=== PATIENT | female | born 1940 | race Caucasian/White ===

== ENCOUNTER 2018-02-03 09:11 | Observation (INO) | payer MEDICARE ==
[2018-02-03] MEDS ORDERED: SODIUM CHLORIDE 0.9% 1,000 ML IV STA (09:51)
--- NOTE | 2018-02-03 09:54 | ED ---
General Adult HPI - General Chief complaint: Fall Stated complaint: weak Time Seen by Provider: 02/03/18 09:20 Source: patient, RN notes reviewed Mode of arrival: EMS Limitations: no limitations - History of Present Illness Initial comments: Patient is a pleasant 77-year-old female presenting to the emergency department with weakness. Onset of symptoms was this morning. Patient woke up a little bit later than normal. Patient got up she was weak and fell down. No significant injury. Last tetanus immunization 8 years ago. Patient does not believe she lost consciousness. No headache. No neck or back pain. No isolated area of weakness. No history of similar symptoms previously. - Related Data Allergies Allergy/AdvReac Type Severity Reaction Status Date / Time No Known Allergies Allergy Verified 02/03/18 09:54 Review of Systems ROS Statement: Those systems with pertinent positive or pertinent negative responses have been documented in the HPI. ROS Other: All systems not noted in ROS Statement are negative. Constitutional: Denies: fever Eyes: Denies: eye pain ENT: Denies: ear pain Respiratory: Denies: cough Cardiovascular: Denies: chest pain Endocrine: Denies: fatigue Gastrointestinal: Denies: abdominal pain Genitourinary: Denies: dysuria Musculoskeletal: Denies: back pain Skin: Denies: rash Neurological: Reports: weakness. Denies: headache, numbness, paresthesias, confusion Past Medical History Past Medical History: Diabetes Mellitus, Hypertension History of Any Multi-Drug Resistant Organisms: None Reported Past Surgical History: Orthopedic Surgery Additional Past Surgical History / Comment(s): knees Past Psychological History: No Psychological Hx Reported Smoking Status: Never smoker Past Alcohol Use History: None Reported General Exam Limitations: no limitations General appearance: alert, in no apparent distress Head exam: Present: atraumatic Eye exam: Present: normal appearance, PERRL, EOMI, nystagmus ENT exam: Present: mucous membranes dry Neck exam: Present: normal inspection. Absent: tenderness Respiratory exam: Present: normal lung sounds bilaterally Cardiovascular Exam: Present: regular rate, normal rhythm GI/Abdominal exam: Present: soft. Absent: tenderness Extremities exam: Present: normal inspection Back exam: Present: normal inspection Neurological exam: Present: alert, oriented X3, CN II-XII intact. Absent: motor sensory deficit Expanded Neurological exam: Present: protecting the airway Patient oriented to: Present: person, place, time Speech: Present: fluid speech Cranial nerves: EOM's Intact: Normal Cerebellar function: Finger to Nose: Normal Sensory exam: Upper Extremity Light Touch: Normal, Lower Extremity Light Touch: Normal Motor strength exam: RUE: 5, LUE: 5, RLE: 5, LLE: 5 Eye Response: (4) open spontaneously Motor Response: (6) obeys commands Verbal Response: (5) oriented Psychiatric exam: Present: normal affect, normal mood Skin exam: Present: normal color, abrasion (Left elbow) Course Vital Signs 02/03/18 09:21 Temperature 97.6 F Pulse Rate 61 Respiratory 18 Rate Blood Pressure 168/70 O2 Sat by Pulse 99 Oximetry - Reevaluation(s) Reevaluation #1: 02/03/18 12:31 Patient does not meet sepsis criteria EKG Findings - EKG Comments: EKG Findings:: Sinus bradycardia 55. WI 152. QRS 100. QT 456. QTc 436. Left axis. Normal QRS. No acute ST change. Medical Decision Making - Medical Decision Making Patient reevaluated and resting comfortably in bed. Patient updated on results and plan. Xanax will be obtained. Case was discussed in detail with Dr. martinez, who will admit for Dr. lopez. - Lab Data Result diagrams: 02/03/18 09:29 02/03/18 09:29 Lab Results 02/03/18 02/03/18 02/03/18 Range/Units 09:29 09:29 09:29 WBC 5.6 (3.8-10.6) k/uL RBC 3.64 L (3.80-5.40) m/uL Hgb 9.4 L (11.4-16.0) gm/dL Hct 30.2 L (34.0-46.0) % MCV 83.0 (80.0-100.0) fL MCH 25.9 (25.0-35.0) pg MCHC 31.2 (31.0-37.0) g/dL RDW 15.8 H (11.5-15.5) % Plt Count 264 (150-450) k/uL Neutrophils % 44 % Lymphocytes % 42 % Monocytes % 8 % Eosinophils % 3 % Basophils % 1 % Neutrophils # 2.5 (1.3-7.7) k/uL Lymphocytes # 2.3 (1.0-4.8) k/uL Monocytes # 0.5 (0-1.0) k/uL Eosinophils # 0.2 (0-0.7) k/uL Basophils # 0.0 (0-0.2) k/uL Hypochromasia Moderate PT (9.0-12.0) sec INR (<1.2) APTT (22.0-30.0) sec Sodium 138 (137-145) mmol/L Potassium 3.3 L (3.5-5.1) mmol/L Chloride 99 (98-107) mmol/L Carbon Dioxide 29 (22-30) mmol/L Anion Gap 10 mmol/L BUN 40 H (7-17) mg/dL Creatinine 1.02 (0.52-1.04) mg/dL Est GFR (CKD-EPI)AfAm 61 (>60 ml/min/1.73 sqM) Est GFR (CKD-EPI)NonAf 53 (>60 ml/min/1.73 sqM) Glucose 101 H (74-99) mg/dL Calcium 9.5 (8.4-10.2) mg/dL Magnesium 2.3 (1.6-2.3) mg/dL Total Bilirubin 0.2 (0.2-1.3) mg/dL AST 23 (14-36) U/L ALT 26 (9-52) U/L Alkaline Phosphatase 109 (38-126) U/L Total Creatine Kinase 98 (30-135) U/L CK-MB (CK-2) 1.4 (0.0-2.4) ng/mL CK-MB (CK-2) Rel Index 1.4 Troponin I <0.012 (0.000-0.034) ng/mL Total Protein 6.7 (6.3-8.2) g/dL Albumin 3.6 (3.5-5.0) g/dL Urine Color Urine Appearance (Clear) Urine pH (5.0-8.0) Ur Specific [place] (1.001-1.035) Urine Protein (Negative) Urine Glucose (UA) (Negative) Urine Ketones (Negative) Urine Blood (Negative) Urine Nitrite (Negative) Urine Bilirubin (Negative) Urine Urobilinogen (<2.0) mg/dL Ur Leukocyte Esterase (Negative) Urine RBC (0-5) /hpf Urine WBC (0-5) /hpf Urine Bacteria (None) /hpf Hyaline Casts (0-2) /lpf 02/03/18 02/03/18 Range/Units 09:29 11:30 WBC (3.8-10.6) k/uL RBC (3.80-5.40) m/uL Hgb (11.4-16.0) gm/dL Hct (34.0-46.0) % MCV (80.0-100.0) fL MCH (25.0-35.0) pg MCHC (31.0-37.0) g/dL RDW (11.5-15.5) % Plt Count (150-450) k/uL Neutrophils % % Lymphocytes % % Monocytes % % Eosinophils % % Basophils % % Neutrophils # (1.3-7.7) k/uL Lymphocytes # (1.0-4.8) k/uL Monocytes # (0-1.0) k/uL Eosinophils # (0-0.7) k/uL Basophils # (0-0.2) k/uL Hypochromasia PT 9.6 (9.0-12.0) sec INR 1.0 (<1.2) APTT 20.7 L (22.0-30.0) sec Sodium (137-145) mmol/L Potassium (3.5-5.1) mmol/L Chloride (98-107) mmol/L Carbon Dioxide (22-30) mmol/L Anion Gap mmol/L BUN (7-17) mg/dL Creatinine (0.52-1.04) mg/dL Est GFR (CKD-EPI)AfAm (>60 ml/min/1.73 sqM) Est GFR (CKD-EPI)NonAf (>60 ml/min/1.73 sqM) Glucose (74-99) mg/dL Calcium (8.4-10.2) mg/dL Magnesium (1.6-2.3) mg/dL Total Bilirubin (0.2-1.3) mg/dL AST (14-36) U/L ALT (9-52) U/L Alkaline Phosphatase (38-126) U/L Total Creatine Kinase (30-135) U/L CK-MB (CK-2) (0.0-2.4) ng/mL CK-MB (CK-2) Rel Index Troponin I (0.000-0.034) ng/mL Total Protein (6.3-8.2) g/dL Albumin (3.5-5.0) g/dL Urine Color Light Yellow Urine Appearance Clear (Clear) Urine pH 6.5 (5.0-8.0) Ur Specific [place] 1.012 (1.001-1.035) Urine Protein Negative (Negative) Urine Glucose (UA) Negative (Negative) Urine Ketones Negative (Negative) Urine Blood Negative (Negative) Urine Nitrite Positive H (Negative) Urine Bilirubin Negative (Negative) Urine Urobilinogen <2.0 (<2.0) mg/dL Ur Leukocyte Esterase Small H (Negative) Urine RBC <1 (0-5) /hpf Urine WBC 14 H (0-5) /hpf Urine Bacteria Moderate H (None) /hpf Hyaline Casts 4 H (0-2) /lpf - Radiology Data Radiology results: report reviewed (Computed tomography scan of the brain shows atrophy. No acute intercranial abnormality.), image reviewed (Chest x-ray shows no definite acute process.) Disposition Clinical Impression: Dehydration, UTI (urinary tract infection) Disposition: ADMITTED IP TO THIS HOSP Condition: Stable Referrals: James Groves MD [Primary Care Provider] - 1-2 days Decision Time: 12:32
[2018-02-03 10:09] LABS: Basophils % (A) 1 %; Eosinophils # (A) 0.2 k/uL (0-0.7); Eosinophils % (A) 3 %; HCT 30.2 % (34.0-46.0); HGB 9.4 gm/dL (11.4-16.0); Hypochromasia Moderate; Lymphocytes # (A) 2.3 k/uL (1.0-4.8); Lymphocytes % (A) 42 %; MCH 25.9 pg (25.0-35.0); MCHC 31.2 g/dL (31.0-37.0); Mean Platelet Volume 8.2; Monocytes # (A) 0.5 k/uL (0-1.0); Monocytes % (A) 8 %; Neutrophils # (A) 2.5 k/uL (1.3-7.7); Neutrophils % (A) 44 %; Platelet Count 264 k/uL (150-450); RBC 3.64 m/uL (3.80-5.40); RDW 15.8 % (11.5-15.5); WBC 5.6 k/uL (3.8-10.6)
[2018-02-03 10:22] LABS: Albumin 3.6 g/dL (3.5-5.0); Calcium 9.5 mg/dL (8.4-10.2); Magnesium 2.3 mg/dL (1.6-2.3); Potassium 3.3 mmol/L (3.5-5.1); Total Bilirubin 0.2 mg/dL (0.2-1.3); Total Protein 6.7 g/dL (6.3-8.2)
[2018-02-03 10:24] LABS: Prothrombin Time 9.6 sec (9.0-12.0)
[2018-02-03 10:29] LABS: Partial Thromboplastin Time 20.7 sec (22.0-30.0)
[2018-02-03 10:35] LABS: Creatine Kinase 98 U/L (30-135)
--- NOTE | 2018-02-03 10:35 | CT ---
EXAMINATION TYPE: CT brain wo con DATE OF EXAM: 02/03/2018 COMPARISON: None HISTORY: 77-year-old female with weakness, Fall-confusion TECHNIQUE: Examination was done in axial plane without intravenous contrast. Coronal and sagittal r econstructions performed. CT DLP: 995.50 mGycm Automated exposure control for dose reduction was used. FINDINGS: There is no evidence of acute intracranial hemorrhage, acute ischemic changes, mass, mass-effect, or extra-axial fluid collection. There is no effacement of cerebral sulci or basal subarachnoid cister ns. There is no hydrocephalus. There is no midline shift. Wall-white matter distinction is preserv ed. Mild to moderate generalized cortical atrophy along the superior convexities. Mucosal thickening ethmoid air cells. Mastoid air cells well pneumatized. Orbits and globes are intac t. IMPRESSION: Cerebral cortical atrophy. No acute intracranial abnormality seen. Mild chronic ethmoid sinus disease .
--- NOTE | 2018-02-03 10:36 | XR ---
EXAMINATION TYPE: XR chest 2V DATE OF EXAM: 02/03/2018 COMPARISON: None HISTORY: 77-year-old female with weakness, fall, confusion TECHNIQUE: Frontal and lateral views FINDINGS: Heart upper limits of normal in size. Aorta and pulmonary vasculature within normal limits. Mild inte rstitial prominence as a chronic appearance. No consolidation or pleural effusion. Degenerative sandoval es at both shoulders. IMPRESSION: Borderline heart size and chronic appearing changes. No definite acute process.
[2018-02-03 10:48] LABS: Creatine Kinase MB 1.4 ng/mL (0.0-2.4); Troponin I <0.012 ng/mL (0.000-0.034)
[2018-02-03 11:49] LABS: Appearance,Urine Clear (Clear); Bacteria,Urine Moderate /hpf; Bilirubin,Urine Negative (Negative); Blood,Urine Negative (Negative); Color,Urine Light Yellow; Glucose,Urine (UA) Negative (Negative); Hyaline Casts,Urine 4 /lpf (0-2); Ketones,Urine Negative (Negative); Leukocyte Esterase,Urine Small (Negative); Nitrite,Urine Positive (Negative); PH, Urine 6.5 (5.0-8.0); Protein,Urine Negative (Negative); RBC,Urine <1 /hpf (0-5); Specific Gravity,Urine 1.012 (1.001-1.035); Urobilinogen,Urine <2.0 mg/dL (<2.0); WBC,Urine 14 /hpf (0-5)
[2018-02-03] MEDS ORDERED: ACETAMINOPHEN TAB 325 MG TAB PO PRN (12:32)
[2018-02-03] MEDS ORDERED: NALOXONE 0.4 MG/ML 1 ML VIAL IV PRN (12:32)
[2018-02-03] MEDS ORDERED: IBUPROFEN 800 MG TAB PO STA (13:14)
[2018-02-03] MEDS ORDERED: cefTRIAXone IN SWFI 1,000 MG/10 ML SYRINGE IVP STA (13:22)
[2018-02-03] MEDS: SODIUM CHLORIDE 0.9% 1,000 ML IV SCH ×2 (14:44→20:46)
[2018-02-03] MEDS ORDERED: IBUPROFEN 800 MG TAB PO PRN (15:05)
[2018-02-03] MEDS: HYDROcodone/APAP 7.5-325MG 1 EACH TAB PO SCH ×2 (16:13→20:45)
[2018-02-03] MEDS: GABAPENTIN 400 MG CAP PO SCH ×2 (16:14→20:45)
[2018-02-03] MEDS: LISINOPRIL 20 MG TAB PO SCH (16:14)
[2018-02-03] MEDS: FUROSEMIDE 40 MG TAB PO SCH (16:14)
[2018-02-03] MEDS: POTASSIUM CHLORIDE ER 10 MEQ TAB.ER.PRT PO SCH (16:15)
[2018-02-03] MEDS: HYDROCHLOROTHIAZIDE 25 MG TAB PO SCH (16:15)
[2018-02-03 16:37] VITALS: BMI 34.5
[2018-02-03 17:06] LABS: Glucose,Whole Blood 127 mg/dL (75-99)
[2018-02-03] MEDS: metFORMIN 500 MG TAB PO SCH (17:49)
[2018-02-03] MEDS ORDERED: BACLOFEN 10 MG TAB PO SCH (21:00)
[2018-02-03] MEDS ORDERED: risperiDONE 1 MG TAB PO SCH (21:00)
[2018-02-03] MEDS ORDERED: ZOLPIDEM 10 MG TAB PO SCH (21:00)
--- NOTE | 2018-02-03 21:32 | P.CNNES ---
History of Present Illness Consult date: 02/03/18 History of Present Illness: The patient is a 77-year-old right-handed white female who came by EMS to the emergency room at 9 AM this morning. She states she pushed her medical alert button on her wrist because she had fallen at home. The patient states that at 4:30 in the morning she woke up to take her arthritis medication which was 800 mg of Motrin and gabapentin. She states in addition to that she took her extra baclofen. She slept well up until 8:30 AM and when she got up to stand on her with the use of her walker she couldn't stand and slid to the floor. She could not get up from the floor. She pushed the alert button and EMS arrived and brought her to the emergency room. She states normally she takes only one baclofen a day and this is because in the past when she is exceeded more than one baclofen she has had shakiness and general weakness. On this particular morning she took an extra baclofen because she felt that she did a lot the previous day and she may need more pain control. The patient states also that she thought she might be having a urinary tract infection and is going to contact her primary care physician tomorrow. In the emergency room she was found to have a urinary tract infection and was admitted to the hospital with dehydration and UTI. The patient denies any neurologic complaints such as focal weakness numbness visual disturbance headache or dizziness. Review of Systems Constitutional: Reports as per HPI Eyes: denies blurred vision, denies pain Ears, nose, mouth and throat: Denies headache, Denies sore throat Cardiovascular: Denies chest pain, Denies shortness of breath Respiratory: Denies cough Genitourinary: Denies dysuria, Denies hematuria Musculoskeletal: Denies myalgias Integumentary: Denies pruritus, Denies rash Neurological: Reports as per HPI Psychiatric: Denies anxiety, Denies depression Past Medical History Past Medical History: Diabetes Mellitus, Hypertension History of Any Multi-Drug Resistant Organisms: None Reported Past Surgical History: Orthopedic Surgery Additional Past Surgical History / Comment(s): knees Past Anesthesia/Blood Transfusion Reactions: No Reported Reaction Past Psychological History: No Psychological Hx Reported Smoking Status: Never smoker Past Alcohol Use History: None Reported Past Drug Use History: None Reported - Past Family History Father Family Medical History: Diabetes Mellitus Additional Family Medical History / Comment(s): Mother History Unknown: Yes Additional Family Medical History / Comment(s): pancreatic tumor (patient does not believe it was cancerous) Medications and Allergies Home Medications Medication Instructions Recorded Confirmed Type Aspirin EC [Ecotrin Low Dose] 81 mg PO DAILY 02/03/18 02/03/18 History Baclofen [Lioresal] 20 mg PO HS 02/03/18 02/03/18 History Enalapril/Hydrochlorothiazide 1 tab PO DAILY 02/03/18 02/03/18 History [Enalapril-Hctz 10-25 mg Tablet] Furosemide [Lasix] 40 mg PO DAILY 02/03/18 02/03/18 History Gabapentin 800 mg PO QID 02/03/18 02/03/18 History HYDROcodone/APAP 7.5-325MG [[place] 1 tab PO TID 02/03/18 02/03/18 History 7.5-325] Ibuprofen [Motrin] 800 mg PO QID PRN 02/03/18 02/03/18 History Potassium Chloride ER [K-Dur 10] 10 meq PO DAILY 02/03/18 02/03/18 History Zolpidem Tartrate [Ambien] 10 mg PO HS 02/03/18 02/03/18 History metFORMIN HCL 1,000 mg PO BID 02/03/18 02/03/18 History risperiDONE [RisperDAL] 1 mg PO HS 02/03/18 02/03/18 History Allergies Allergy/AdvReac Type Severity Reaction Status Date / Time No Known Allergies Allergy Verified 02/03/18 12:53 Physical Examination - Vital Signs Vital Signs: Vital Signs Temp Pulse Pulse Resp BP BP BP 02/03/18 13:54 97.2 F L 71 18 149/83 129/82 02/03/18 13:48 97.6 F 58 L 16 177/78 02/03/18 13:28 16 177/78 02/03/18 11:46 58 L 18 168/83 02/03/18 09:21 97.6 F 61 18 168/70 BP Pulse Ox 02/03/18 13:54 162/103 99 02/03/18 13:48 97 02/03/18 13:28 97 02/03/18 11:46 100 02/03/18 09:21 99 Intake and Output 09/08/1802/03/18 02/03/18 06:59 14:59 22:59 Intake Total 500 Balance 500 Intake: Amount of Fluid Infused ( 500 ml) Other: Voiding Method Toilet # Voids 1 # Bowel Movements 1 Weight 88.541 kg 88.541 kg - Constitutional General appearance: average body habitus, cooperative - EENT EENT: PERRL, hearing intact, vision intact - Respiratory Respiratory: lungs clear - Cardiovascular Cardiovascular: regular rate, normal S1 - Integumentary Integumentary: rash - Neurologic Neurologic examination: Mental status: She was awake alert and oriented 3. Her speech is fluent. There was no a aphasia or dysarthria. Cranial nerve examination: PERRL, EOMI, VFF, V1/V2/V3 grossly intact, face symmetric, tongue midline Speech examination: intact Sensorimotor examination: intact Detailed motor examination: grossly full strength in all extremities Detailed sensory examination: intact Reflexes: 2+: tricep - Psychiatric Psychiatric: mood/affect appropriate Results - Laboratory Findings CBC and BMP: 02/03/18 09:29 02/03/18 09:29 Abnormal Lab Findings: Abnormal Labs 02/03/18 02/03/18 02/03/18 09:29 09:29 09:29 RBC 3.64 L Hgb 9.4 L Hct 30.2 L RDW 15.8 H APTT 20.7 L Potassium 3.3 L BUN 40 H Glucose 101 H POC Glucose (mg/dL) Urine Nitrite Ur Leukocyte Esterase Urine WBC Urine Bacteria Hyaline Casts 02/03/18 02/03/18 11:30 17:04 RBC Hgb Hct RDW APTT Potassium BUN Glucose POC Glucose (mg/dL) 127 H Urine Nitrite Positive H Ur Leukocyte Esterase Small H Urine WBC 14 H Urine Bacteria Moderate H Hyaline Casts 4 H Assessment and Plan (1) Weakness Current Visit: Yes Status: Acute SNOMED Code(s): 23837169 (2) Fall Current Visit: Yes Status: Acute SNOMED Code(s): 8533882 (3) Dehydration Current Visit: Yes Status: Acute SNOMED Code(s): 00694483 (4) UTI (urinary tract infection) Current Visit: Yes Status: Acute SNOMED Code(s): 24210083 Plan: The patient is a 77-year-old woman admitted to the hospital after a fall at home. The patient lost her strength. She reports taking an extra pill of baclofen which she has not tolerated in the past due to weakness. The patient normally takes 1 baclofen a day and yesterday she took an extra back baclofen at 4:30 AM. When she woke up at 8:30 AM she could not stand and fell to the floor. She states she did not lose consciousness. She was unable to get up to the floor because she has bilateral knee replacements. Patient was admitted to the hospital with UTI and dehydration. Her fall may have been related to the medication which caused her muscles to become weaker and this in combination with her urinary tract infection and dehydration could've caused the fall however further investigation will be done with carotid ultrasound. She had a CT of the brain which showed cerebral cortical atrophy. There was no acute intracranial abnormality.
[2018-02-04] MEDS: GABAPENTIN 400 MG CAP PO SCH ×2 (08:28→12:05)
[2018-02-04] MEDS: metFORMIN 500 MG TAB PO SCH (08:28)
[2018-02-04] MEDS: FUROSEMIDE 40 MG TAB PO SCH (08:28)
[2018-02-04] MEDS: HYDROcodone/APAP 7.5-325MG 1 EACH TAB PO SCH ×2 (08:28→15:46)
[2018-02-04] MEDS: HYDROCHLOROTHIAZIDE 25 MG TAB PO SCH (08:28)
[2018-02-04] MEDS: POTASSIUM CHLORIDE ER 10 MEQ TAB.ER.PRT PO SCH (08:28)
[2018-02-04] MEDS: LISINOPRIL 20 MG TAB PO SCH (08:28)
[2018-02-04] MEDS: SODIUM CHLORIDE 0.9% 1,000 ML IV SCH (08:29)
[2018-02-04 08:32] LABS: Glucose,Whole Blood 155 mg/dL (75-99)
[2018-02-04 08:51] VITALS: BP 150/82; PULSE 74; RESP 16; TEMP 98.1
[2018-02-04] MEDS ORDERED: ASPIRIN 81 MG PO SCH (09:00)
[2018-02-04] MEDS ORDERED: cefTRIAXone IN SWFI 1,000 MG/10 ML SYRINGE IVP SCH (09:00)
[2018-02-04 10:05] LABS: Anion Gap 10 mmol/L; Blood Urea Nitrogen 22 mg/dL (7-17); Calcium 9.4 mg/dL (8.4-10.2); Carbon Dioxide 29 mmol/L (22-30); Chloride 100 mmol/L (98-107); Glucose 199 mg/dL (74-99); Potassium 3.8 mmol/L (3.5-5.1); Sodium 139 mmol/L (137-145)
--- NOTE | 2018-02-04 12:00 | US ---
EXAMINATION TYPE: US carotid duplex BILAT DATE OF EXAM: 02/04/2018 COMPARISON: NONE CLINICAL HISTORY: Fall. EXAM MEASUREMENTS: RIGHT: Peak Systolic Velocity (PSV) cm/sec ----- Right CCA: 79.0 ----- Right ICA: 51.9 ----- Right ECA: 68.1 ICA/CCA ratio: 0.7 RIGHT: End Diastole cm/sec ----- Right CCA: 20.8 ----- Right ICA: 18.4 ----- Right ECA: 10.3 LEFT: Peak Systolic Velocity (PSV) cm/sec ----- Left CCA: 77.6 ----- Left ICA: 56.1 ----- Left ECA: 61.2 ICA/CCA ratio: 0.7 LEFT: End Diastole cm/sec ----- Left CCA: 19.2 ----- Left ICA: 19.4 ----- Left ECA: 7.4 VERTEBRALS (direction of flow): Right Vertebral: Antegrade Left Vertebral: Antegrade Rhythm: Normal Mild atherosclerotic changes, bilateral ICA's dive at 90 degree angle, no significant velocity elevat ions. Grayscale, color Doppler, spectral Doppler imaging performed of the carotid arteries. Waveform analys is does not show significant stenosis of the proximal internal carotid arteries. IMPRESSION: No hemodynamic significant stenosis of the proximal internal carotid arteries bilaterall y by Doppler criteria, an indirect measurement of carotid stenosis
[2018-02-04 12:59] LABS: Glucose,Whole Blood 109 mg/dL (75-99)
--- NOTE | 2018-02-04 15:30 | HP ---
HISTORY AND PHYSICAL DATE OF ADMISSION: February 03, 2018. DATE OF SERVICE: February 04, 2018 PRESENT COMPLAINT: Legs feeling like noodles. HISTORY OF PRESENTING COMPLAINT: This is a pleasant 77-year-old patient of Dr. Groves. Chronic stable medical conditions include diabetes, hypertension, osteoarthritis, insomnia. The patient normally uses a walker to get about. The day before presentation she was sitting out with family the whole day in a gazebo. Decided that night to take an extra baclofen which is a 20 mg pill. The patient normally gets up at 8 in the morning. Patient got up late in the afternoon, when she got up the patient was feeling totally a bit off. Really weak and tired. Legs felt like noodles. The patient went down to the ground. The patient never passed out. There was no dizziness, lightheadedness. No chest pain or palpitation. The patient normally notices trouble getting up the stairs and also raising her arms. The patient presented for the same. Denies any fever and chills. Bowels are stable. Some urinary frequency. REVIEW OF SYSTEMS: CONSTITUTIONAL: Weak and tired. HEENT: Decreased hearing. RESPIRATORY none. CARDIOVASCULAR none. GASTROINTESTINAL none. GENITOURINARY as above. MUSCULOSKELETAL: Arthritic pain in many joints. DERMATOLOGICAL: Chronic some bruising. HEMATOLOGICAL and LYMPHATICS none. PSYCHIATRY: Slightly forgetful. NEUROLOGICAL: Trouble sleeping. Musculoskeletal as above. PAST MEDICAL HISTORY: Diabetes, hypertension, osteoarthritis, insomnia. PAST SURGICAL HISTORY: Knee surgery. SOCIAL HISTORY: No smoking. No alcohol. Lives by herself. Uses a walker. FAMILY HISTORY: Diabetes. HOME MEDICATIONS: 1. Risperdal 1 mg q.h.s. 2. Metformin 1000 mg b.i.d. 3. Ambien 10 mg q.h.s. 4. Potassium 10 mEq a day. 5. Motrin 800 mg q.i.d. p.r.n. 6. [place] 7.5 one tab p.o. t.i.d. 7. Neurontin 800 mg p.o. t.i.d. 8. Lasix 40 mg p.o. daily. 9. Hydrochlorothiazide 10 1 tablet p.o. daily. 10.Baclofen 20 mg q.h.s. 11.Aspirin 81 mg p.o. daily. ALLERGIES: None. PHYSICAL EXAMINATION: VITAL SIGNS: Vital signs on presentation, temperature 97.6. Pulse 61. Respiratory rater 18, blood pressure 160/70, pulse ox 99 percent on 2 L. GENERAL APPEARANCE: Well built, BMI 34.2, lying in bed, somewhat tired-appearing. EYES: Pupils equal. Conjunctivae normal. HEENT: External appearance of nose and ears normal. Oral cavity dry. Decreased hearing. NECK: JVD not raised. Mass not palpable. RESPIRATORY effort normal. LUNGS fair entry. CARDIOVASCULAR: 1st and second sounds normal. Mild edema. ABDOMEN: Soft, nontender. Liver and spleen not palpable. LYMPHATICS: No lymph nodes palpable in the neck and axilla. PSYCHIATRY: Alert and oriented x3. Mood and affect is normal. NEUROLOGICAL: Pupils equal. Cranial nerves grossly intact. Power and sensation grossly intact. MUSCULOSKELETAL: Evidence of severe osteoarthritis especially in the hands. The patient has got scar sahu on the knees. DERMATOLOGICAL: Superficial bruising on the lower extremities. NEUROLOGICAL: Patient is able to lift both legs off the bed. INVESTIGATIONS: White count 5.6, hemoglobin 9.4, potassium 3.3, BUN 40, creatinine is 1.02. UA positive for nitrite, leukoesterase, 14 WBC and bacteria. ASSESSMENT: 1. This patient presented feeling really weak, tired, and fell down in her legs. This felt to be combination of possibly acute metabolic encephalopathy from patient. The patient did take an extra baclofen which is rather hefty dose of 20 mg, also combination of urinary tract infection and partially being on the dry side with the BUN being a 40. 2. Clinical dehydration. Will stop patient's Lasix. 3. Diabetes mellitus type 2 on oral hypoglycemia. 4. Essential hypertension. 5. Chronic insomnia. 6. Primary osteoarthritis severe in multiple joints. 7. 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 8. Acute urinary tract infection. PLAN: Patient is put on IV ceftriaxone. Lasix was discontinued. Patient will be given IV fluids. The patient will be now kept off . The patient was told that we will get physical therapy involved, but she is very keen to go home today and told her it may not be safe for her to do that. We will see how she fairs. Give Lovenox for DVT prophylaxis. The patient also getting IV fluids. Told patient lower extremity swelling is probably from Neurontin which is a rather hefty dose. We will cut back to 3 times a day. Copy to Dr. Groves. [id number] / IJN: [id number] /
[2018-02-04 17:12] LABS: Glucose,Whole Blood 116 mg/dL (75-99)
--- NOTE | 2018-02-06 05:50 | DS ---
DISCHARGE SUMMARY DATE OF ADMISSION: 02/03/2018 DATE OF DISCHARGE: 02/04/2018 FINAL DIAGNOSES: 1. Acute metabolic encephalopathy from an extra dose of baclofen. 2. Acute delirium probably from urinary tract infection. 3. Dehydration from patient being on Lasix. 4. Diabetes mellitus type 2 on oral hypoglycemics. 5. Essential hypertension. 6. Chronic insomnia. 7. Primary osteoarthritis in multiple joints. 8. 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 9. Acute urinary tract infection. HOSPITAL COURSE: This patient who takes quite a few medications decided to take an extra dose of baclofen. She already takes 20 mg at night and presented with weak, tired, falling down. The patient also was found to have UTI that was treated. The patient is quite on hefty dose of medications. The patient's Lasix was discontinued. The patient does get swelling of lower extremities. Hence, dose of Neurontin was cut back from 800 mg to 3 times a day. The patient also on a hefty dose of Ambien 10 mg was cut back to half to 5 mg. care was discussed with the patient in detail. DISCHARGE MEDICATIONS: 1. Aspirin 81 mg a day. 2. Baclofen 20 mg at bedtime. 3. Enalapril/hydrochlorothiazide 10/25 one tablet p.o. daily. 4. [place] 7.5 one tablet p.o. t.i.d. 5. Motrin 800 mg q.i.d. 6. Metformin 1000 mg p.o. b.i.d. 7. Risperdal 1 mg at bedtime. 8. Neurontin 800 mg p.o. t.i.d. 9. Ambien 5 mg p.o. at bedtime. Follow up with Dr. Groves on 02/07/2018. MMODL / MARNIEN: [id number] /
== END 2018-02-04 16:54 | disposition home or self-care (01) ==
LOC: EC 09:11 → 4MS4W 12:32
PROVIDERS: ADMIT Hospitalist; ATTEND Hospitalist
DX: E86.0 Dehydration (principal); N39.0 Urinary tract infection, site not specified; E11.9 Type 2 diabetes mellitus without complications; I10 Essential (primary) hypertension; M15.9 Polyosteoarthritis, unspecified; G47.09 Other insomnia; W19.XXXA Unspecified fall, initial encounter; Y92.009 Unspecified place in unspecified non-institutional (private) residence as the place of occurrence of the external cause; T42.8X1A Poisoning by antiparkinsonism drugs and other central muscle-tone depressants, accidental (unintentional), initial encounter; G92 Toxic encephalopathy; Y92.230 Patient room in hospital as the place of occurrence of the external cause; Z83.3 Family history of diabetes mellitus; Z79.82 Long term (current) use of aspirin; Z79.84 Long term (current) use of oral hypoglycemic drugs
CPT/HCPCS: 96376; 96361 ×3; 96374; 99285; 36415; 93005; 97162; 80053; 80048; 82550; 82553; 83735; 84484; 85025; 85610; 85730; 81001; 87086; 71046; 93880; 70450; G0378 ×2; J0696 ×2

== ENCOUNTER 2018-07-01 21:13 | Observation (INO) | payer MEDICARE ==
--- NOTE | 2018-07-01 21:55 | ED ---
Syncope HPI - General Chief Complaint: Syncope Stated Complaint: Syncope, Fall Time Seen by Provider: 07/01/18 21:19 Source: EMS Mode of arrival: EMS Limitations: no limitations - History of Present Illness Initial Comments: This patient is 77-year-old woman who presents to be evaluated after syncopal episode. The patient states that she had been at home tonight. She relates that she had awakened feeling funny after having had a brief dream and then went to use the bathroom. She states that she passed out and believes she hit her head. The patient then activated her life alert button. Currently the patient complains of right low back pain radiating to her leg that she states is something she chronically has. She states she was told she has sciatica. She states that she is taking Lyrica for this, but notes that she has not had her medications tonight. Complaint: collapsed -: hour(s) Prodromal Symptoms: none -: second(s) Witnessed: no Injuries Sustained Associated with Event: Head Current Symptoms: back to baseline Context: other (Related to having a bowel movement) - Related Data Home Medications Medication Instructions Recorded Confirmed Aspirin EC [Ecotrin Low Dose] 81 mg PO DAILY 02/03/18 07/01/18 Baclofen [Lioresal] 20 mg PO HS PRN 02/03/18 07/01/18 Enalapril/Hydrochlorothiazide 1 tab PO DAILY 02/03/18 07/01/18 [Enalapril-Hctz 10-25 mg Tablet] HYDROcodone/APAP 7.5-325MG [[place] 1 tab PO TID PRN 02/03/18 07/01/18 7.5-325] risperiDONE [RisperDAL] 1 mg PO HS 02/03/18 07/01/18 Furosemide [Lasix] 40 mg PO DAILY 07/01/18 07/01/18 Potassium Chloride ER [K-Dur 10] 10 meq PO DAILY 07/01/18 07/01/18 Pregabalin [Lyrica] 75 mg PO TID 07/01/18 07/01/18 Previous Rx's Medication Instructions Recorded Zolpidem Tartrate [Ambien] 5 mg PO HS #0 02/04/18 Allergies Allergy/AdvReac Type Severity Reaction Status Date / Time No Known Allergies Allergy Verified 02/03/18 12:53 Review of Systems ROS Statement: Those systems with pertinent positive or pertinent negative responses have been documented in the HPI. ROS Other: All systems not noted in ROS Statement are negative. Constitutional: Denies: fever, chills, weakness Eyes: Denies: vision change Respiratory: Denies: cough, dyspnea Cardiovascular: Reports: syncope. Denies: chest pain, palpitations, orthopnea Gastrointestinal: Denies: abdominal pain, vomiting, diarrhea Genitourinary: Denies: dysuria Musculoskeletal: Reports: as per HPI, back pain (Chronic). Denies: joint swelling, arthralgia Skin: Denies: lesions Neurological: Denies: headache, weakness, numbness Psychiatric: Reports: anxiety Past Medical History Past Medical History: Heart Failure, Diabetes Mellitus, Hypertension Additional Past Medical History / Comment(s): sciatic nerve pain, insomnia, RLS , History of Any Multi-Drug Resistant Organisms: None Reported Past Surgical History: Orthopedic Surgery Additional Past Surgical History / Comment(s): knees, Past Anesthesia/Blood Transfusion Reactions: No Reported Reaction Past Psychological History: No Psychological Hx Reported Smoking Status: Never smoker Past Alcohol Use History: None Reported Past Drug Use History: None Reported - Past Family History Father Family Medical History: Diabetes Mellitus Additional Family Medical History / Comment(s): Mother History Unknown: Yes Additional Family Medical History / Comment(s): pancreatic tumor (patient does not believe it was cancerous) General Exam Limitations: no limitations General appearance: alert, anxious Head exam: Present: atraumatic, normocephalic Eye exam: Present: normal appearance, PERRL, EOMI. Absent: scleral icterus, conjunctival injection Neck exam: Present: normal inspection, other (Cervical collar) Respiratory exam: Present: normal lung sounds bilaterally. Absent: respiratory distress, wheezes, rales, rhonchi, stridor Cardiovascular Exam: Present: regular rate, normal rhythm, normal heart sounds. Absent: systolic murmur, diastolic murmur, rubs, gallop GI/Abdominal exam: Present: soft. Absent: distended, tenderness, guarding, rebound, rigid, mass Extremities exam: Present: normal inspection, normal capillary refill. Absent: pedal edema, calf tenderness Back exam: Present: normal inspection. Absent: CVA tenderness (R), CVA tenderness (L), vertebral tenderness Neurological exam: Present: alert, oriented X3. Absent: motor sensory deficit Skin exam: Present: warm, dry, intact, normal color. Absent: rash Course Vital Signs 07/01/18 07/01/18 07/01/18 21:16 21:35 22:44 Temperature 97.5 F L Pulse Rate 68 62 68 Respiratory 16 18 18 Rate Blood Pressure 141/54 133/80 123/75 O2 Sat by Pulse 100 97 100 Oximetry 07/01/18 07/02/18 07/02/18 23:51 05:00 06:10 Temperature 97.6 F Pulse Rate 63 69 67 Respiratory 18 20 20 Rate Blood Pressure 153/73 112/78 113/61 O2 Sat by Pulse 96 97 96 Oximetry EKG Findings - EKG Comments: EKG Findings:: Similar to comparison ECG from 02/03/2018. - EKG Results: EKG: interpreted by MICHELLE, sinus rhythm (Rate 68 bpm), normal QRS, normal ST/T, no acute changes - Blocks, [place], Hypertrophy, ST Abn: QRS axis and voltage: left axis deviation (-30 to -90) Medical Decision Making - Medical Decision Making This patient is 77-year-old woman presenting following syncopal episode. The workup does reveal elevated d-dimer but her CT for pulmonary embolus is negative. Patient be admitted for telemetry and serial cardiac enzymes. We'll also obtain duplex Doppler study. - Lab Data Result diagrams: 07/01/18 21:50 07/01/18 21:50 Lab Results 07/01/18 07/01/18 07/01/18 Range/Units 21:50 21:50 21:50 WBC 5.8 (3.8-10.6) k/uL RBC 4.15 (3.80-5.40) m/uL Hgb 9.7 L (11.4-16.0) gm/dL Hct 32.2 L (34.0-46.0) % MCV 77.6 L (80.0-100.0) fL MCH 23.5 L (25.0-35.0) pg MCHC 30.3 L (31.0-37.0) g/dL RDW 16.2 H (11.5-15.5) % Plt Count 235 (150-450) k/uL Neutrophils % 60 % Lymphocytes % 24 % Monocytes % 7 % Eosinophils % 4 % Basophils % 1 % Neutrophils # 3.5 (1.3-7.7) k/uL Lymphocytes # 1.4 (1.0-4.8) k/uL Monocytes # 0.4 (0-1.0) k/uL Eosinophils # 0.2 (0-0.7) k/uL Basophils # 0.1 (0-0.2) k/uL Hypochromasia Moderate Anisocytosis Slight Microcytosis Slight PT (9.0-12.0) sec INR (<1.2) APTT (22.0-30.0) sec D-Dimer (<0.60) mg/L FEU Sodium 137 (137-145) mmol/L Potassium 3.8 (3.5-5.1) mmol/L Chloride 101 (98-107) mmol/L Carbon Dioxide 21 L (22-30) mmol/L Anion Gap 15 mmol/L BUN 44 H (7-17) mg/dL Creatinine 1.23 H (0.52-1.04) mg/dL Est GFR (CKD-EPI)AfAm 49 (>60 ml/min/1.73 sqM) Est GFR (CKD-EPI)NonAf 42 (>60 ml/min/1.73 sqM) Glucose 171 H (74-99) mg/dL Calcium 9.3 (8.4-10.2) mg/dL Total Bilirubin 0.3 (0.2-1.3) mg/dL AST 27 (14-36) U/L ALT 25 (9-52) U/L Alkaline Phosphatase 113 (38-126) U/L Total Creatine Kinase 77 (30-135) U/L CK-MB (CK-2) 1.9 (0.0-2.4) ng/mL CK-MB (CK-2) Rel Index 2.5 Troponin I <0.012 (0.000-0.034) ng/mL Total Protein 7.3 (6.3-8.2) g/dL Albumin 4.0 (3.5-5.0) g/dL Urine Color Urine Appearance (Clear) Urine pH (5.0-8.0) Ur Specific [place] (1.001-1.035) Urine Protein (Negative) Urine Glucose (UA) (Negative) Urine Ketones (Negative) Urine Blood (Negative) Urine Nitrite (Negative) Urine Bilirubin (Negative) Urine Urobilinogen (<2.0) mg/dL Ur Leukocyte Esterase (Negative) 07/01/18 07/01/18 Range/Units 21:50 23:45 WBC (3.8-10.6) k/uL RBC (3.80-5.40) m/uL Hgb (11.4-16.0) gm/dL Hct (34.0-46.0) % MCV (80.0-100.0) fL MCH (25.0-35.0) pg MCHC (31.0-37.0) g/dL RDW (11.5-15.5) % Plt Count (150-450) k/uL Neutrophils % % Lymphocytes % % Monocytes % % Eosinophils % % Basophils % % Neutrophils # (1.3-7.7) k/uL Lymphocytes # (1.0-4.8) k/uL Monocytes # (0-1.0) k/uL Eosinophils # (0-0.7) k/uL Basophils # (0-0.2) k/uL Hypochromasia Anisocytosis Microcytosis PT 10.0 (9.0-12.0) sec INR 0.9 (<1.2) APTT 23.3 (22.0-30.0) sec D-Dimer 11.90 H (<0.60) mg/L FEU Sodium (137-145) mmol/L Potassium (3.5-5.1) mmol/L Chloride (98-107) mmol/L Carbon Dioxide (22-30) mmol/L Anion Gap mmol/L BUN (7-17) mg/dL Creatinine (0.52-1.04) mg/dL Est GFR (CKD-EPI)AfAm (>60 ml/min/1.73 sqM) Est GFR (CKD-EPI)NonAf (>60 ml/min/1.73 sqM) Glucose (74-99) mg/dL Calcium (8.4-10.2) mg/dL Total Bilirubin (0.2-1.3) mg/dL AST (14-36) U/L ALT (9-52) U/L Alkaline Phosphatase (38-126) U/L Total Creatine Kinase (30-135) U/L CK-MB (CK-2) (0.0-2.4) ng/mL CK-MB (CK-2) Rel Index Troponin I (0.000-0.034) ng/mL Total Protein (6.3-8.2) g/dL Albumin (3.5-5.0) g/dL Urine Color Light Yellow Urine Appearance Clear (Clear) Urine pH 6.0 (5.0-8.0) Ur Specific [place] 1.007 (1.001-1.035) Urine Protein Negative (Negative) Urine Glucose (UA) Negative (Negative) Urine Ketones Negative (Negative) Urine Blood Negative (Negative) Urine Nitrite Negative (Negative) Urine Bilirubin Negative (Negative) Urine Urobilinogen <2.0 (<2.0) mg/dL Ur Leukocyte Esterase Negative (Negative) Disposition Clinical Impression: Syncope, Elevated d-dimer Disposition: ADMITTED IP TO THIS HOSP Condition: Fair
[2018-07-01 22:07] LABS: Anisocytosis Slight; Basophils # (A) 0.1 k/uL (0-0.2); Basophils % (A) 1 %; Eosinophils # (A) 0.2 k/uL (0-0.7); Eosinophils % (A) 4 %; HCT 32.2 % (34.0-46.0); HGB 9.7 gm/dL (11.4-16.0); Hypochromasia Moderate; Lymphocytes # (A) 1.4 k/uL (1.0-4.8); Lymphocytes % (A) 24 %; MCH 23.5 pg (25.0-35.0); MCHC 30.3 g/dL (31.0-37.0); MCV 77.6 fL (80.0-100.0); Mean Platelet Volume 7.5; Microcytosis Slight; Monocytes # (A) 0.4 k/uL (0-1.0); Monocytes % (A) 7 %; Neutrophils # (A) 3.5 k/uL (1.3-7.7); Neutrophils % (A) 60 %; Platelet Count 235 k/uL (150-450); RBC 4.15 m/uL (3.80-5.40); RDW 16.2 % (11.5-15.5); WBC 5.8 k/uL (3.8-10.6)
[2018-07-01] MEDS ORDERED: HYDROcodone/APAP 5-325MG 1 EACH TAB PO STA (22:19)
[2018-07-01 22:21] LABS: Calcium 9.3 mg/dL (8.4-10.2); Potassium 3.8 mmol/L (3.5-5.1); Total Bilirubin 0.3 mg/dL (0.2-1.3); Total Protein 7.3 g/dL (6.3-8.2)
[2018-07-01 22:27] LABS: Creatine Kinase 77 U/L (30-135)
[2018-07-01 22:40] LABS: Creatine Kinase MB 1.9 ng/mL (0.0-2.4); Troponin I <0.012 ng/mL (0.000-0.034)
[2018-07-01 22:44] LABS: INR 0.9 (<1.2); Partial Thromboplastin Time 23.3 sec (22.0-30.0)
--- NOTE | 2018-07-01 22:53 | CT ---
EXAMINATION TYPE: CT brain micky monae DATE OF EXAM: 07/01/2018 COMPARISON: Head CT scan 02/03/2018 HISTORY: pt fall, hitting back of head neck pain. Headache. CT DLP: 1368.9 mGycm Automated exposure control for dose reduction was used. TECHNIQUE: CT scan of the head and cervical spine are performed without contrast. FINDINGS: There is cerebral cortical atrophy. There is no mass effect nor midline shift. There is n o sign of intracranial hemorrhage. Calvarium is intact. The cervical vertebra have fairly normal alignment. There is degenerative disc space narrowing throug hout the cervical spine with spurring of the endplates. Posterior elements are intact. The skull base is intact. There is no compression fracture. There is no subluxation. IMPRESSION: Cerebral atrophy. No acute intracranial abnormality. No change. Multilevel spondylotic changes in the cervical spine. No fracture.
[2018-07-01 22:55] LABS: D-Dimer 11.9 mg/L FEU (<0.60)
--- NOTE | 2018-07-01 23:39 | XR ---
EXAMINATION TYPE: XR pelvis AP view DATE OF EXAM: 07/01/2018 COMPARISON: NONE HISTORY: Pain TECHNIQUE: Single view FINDINGS: The pelvic ring is intact. Proximal femurs are intact. There is acetabular mild spurring. S acroiliac joints are intact. There is mild lumbar levoscoliosis. IMPRESSION: Nonacute abdomen.
--- NOTE | 2018-07-01 23:46 | CT ---
EXAMINATION TYPE: CT chest angio for PE DATE OF EXAM: 07/01/2018 COMPARISON: None HISTORY: syncope;elevated D-dimer CT DLP: 432.9 mGycm Automated exposure control for dose reduction was used. CONTRAST: CT Chest for pulmonary embolism performed with with IV Contrast, patient injected with 80 mL of Isovu e 370. There are 3-D post processed images. FINDINGS: The lungs are clear of consolidation. There is subsegmental atelectasis at the lung bases. There is n o pleural effusion. There are multiple calcified gallstones. There is no adrenal mass. There is moderate size hiatal hernia. There is no pericardial effusion. There is normal contrast opacification of the pulmonary arteries. There are no filling defects. There are no hilar masses. There is no mediastinal adenopathy. Thoracic aorta shows no aneurysm or dissect ion. The bony thorax is intact. There is no thoracic compression fracture. IMPRESSION: No evidence of pulmonary embolism. Cholelithiasis. Hiatal hernia.
[2018-07-01] MEDS ORDERED: SODIUM CHLORIDE 0.9% 1,000 ML IV ONE (23:49)
[2018-07-01 23:56] LABS: Appearance,Urine Clear (Clear); Bilirubin,Urine Negative (Negative); Blood,Urine Negative (Negative); Color,Urine Light Yellow; Glucose,Urine (UA) Negative (Negative); Ketones,Urine Negative (Negative); Leukocyte Esterase,Urine Negative (Negative); Nitrite,Urine Negative (Negative); Protein,Urine Negative (Negative); Specific Gravity,Urine 1.007 (1.001-1.035); Urobilinogen,Urine <2.0 mg/dL (<2.0)
[2018-07-02] MEDS ORDERED: ENOXAPARIN 80 MG/0.8 ML SYRINGE SQ STA (01:10)
[2018-07-02] MEDS ORDERED: LORazepam 2 MG/ML INJ IV STA (01:11)
[2018-07-02] MEDS ORDERED: NITROGLYCERIN SL TABS 0.4 MG TAB SUBLINGUAL PRN (05:08)
[2018-07-02 06:06] LABS: Creatine Kinase 64 U/L (30-135)
[2018-07-02 06:19] LABS: Creatine Kinase MB 2.1 ng/mL (0.0-2.4); Troponin I <0.012 ng/mL (0.000-0.034)
--- NOTE | 2018-07-02 08:10 | P.HPIM ---
History of Present Illness H&P Date: 07/02/18 Chief Complaint: Syncope 77-year-old female with history of diabetes mellitus, hypertension Patient was at her baseline status of health, she had a nap yesterday and then after waking up late in the evening she went to use the bathroom she uses a walker to ambulate. She denies any straining constipation or diarrhea she denies any bloody bowel movements or melena. Later on she went to the kitchen using her walker trying to get some water and while leaning against the countertop she fell and hit her head. She is not sure if she passed out but she thinks she might have but to her it was immediately she woke up found herself on the floor and activated the [place] alert and notified EMS and was brought to the hospital. Patient denies any palpitations chest pain shortness of breath dizziness focal neurologic deficits like weakness numbness or tingling in any of her extremities denies any chest pain fevers chills nausea or vomiting. She reports that she was completely asymptomatic before and after the fall. However she does add that she might have felt a little bit lightheaded before falling however she is not sure. She denies falling on regular basis and she reports that she had one fall within the past year where she was brought to the hospital she thinks at that time her legs gave out due to her severe arthritis. She had for full neurologic evaluation at that time and was cleared. In the emergency department her vital signs were stable, labs overall were within her baseline except for elevated creatinine and BUN suggestive of some dehydration. EKG was unremarkable. Computed tomography scan of the head was negative for any acute process At baseline patient ambulates using a walker patient lives alone in a condo patient is not on any blood thinners which she takes daily aspirin. Review of Systems Pertinent positives as noted in HPI. All other systems were reviewed and are negative Past Medical History Past Medical History: Heart Failure, Diabetes Mellitus, Hypertension Additional Past Medical History / Comment(s): sciatic nerve pain, insomnia, RLS , History of Any Multi-Drug Resistant Organisms: None Reported Past Surgical History: Orthopedic Surgery Additional Past Surgical History / Comment(s): knees, Past Anesthesia/Blood Transfusion Reactions: No Reported Reaction Past Psychological History: No Psychological Hx Reported Smoking Status: Never smoker Past Alcohol Use History: None Reported Past Drug Use History: None Reported - Past Family History Father Family Medical History: Diabetes Mellitus Additional Family Medical History / Comment(s): Mother History Unknown: Yes Additional Family Medical History / Comment(s): pancreatic tumor (patient does not believe it was cancerous) Medications and Allergies Home Medications Medication Instructions Recorded Confirmed Type Aspirin EC [Ecotrin Low Dose] 81 mg PO DAILY 02/03/18 07/01/18 History Baclofen [Lioresal] 20 mg PO HS PRN 02/03/18 07/01/18 History Enalapril/Hydrochlorothiazide 1 tab PO DAILY 02/03/18 07/01/18 History [Enalapril-Hctz 10-25 mg Tablet] HYDROcodone/APAP 7.5-325MG [[place] 1 tab PO TID PRN 02/03/18 07/01/18 History 7.5-325] risperiDONE [RisperDAL] 1 mg PO HS 02/03/18 07/01/18 History Zolpidem Tartrate [Ambien] 5 mg PO HS #0 02/04/18 07/01/18 Rx Furosemide [Lasix] 40 mg PO DAILY 07/01/18 07/01/18 History Potassium Chloride ER [K-Dur 10] 10 meq PO DAILY 07/01/18 07/01/18 History Pregabalin [Lyrica] 75 mg PO TID 07/01/18 07/01/18 History Allergies Allergy/AdvReac Type Severity Reaction Status Date / Time No Known Allergies Allergy Verified 02/03/18 12:53 Physical Exam Vitals: Vital Signs Temp Pulse Resp BP Pulse Ox 07/02/18 06:10 67 20 113/61 96 07/02/18 05:00 69 20 112/78 97 07/01/18 23:51 97.6 F 63 18 153/73 96 07/01/18 22:44 68 18 123/75 100 07/01/18 21:35 62 18 133/80 97 07/01/18 21:16 97.5 F L 68 16 141/54 100 Intake and Output 07/01/18 07/01/18 07/02/18 14:59 22:59 06:59 Output Total 600 Balance -600 Output: Urine 600 Straight 600 Other: Weight 80.286 kg Constitutional: No acute distress, conversant, pleasant Eyes: Anicteric sclerae, moist conjunctiva, no lid-lag Pupils equal round reactive to light ENMT: NC/AT Oropharynx clear, no erythema, exudates Neck: Supple, FROM, no masses, or JVD No carotid bruits No thyromegaly Lungs: Clear to auscultation Clear to percussion Normal respiratory effort, no accessory muscle use Cardiovascular: Heart regular in rate and rhythm, No murmurs, gallops, or rubs No peripheral edema Abdominal: Soft Nontender, no guarding, rebound or rigidity Abdomen moving with respiration Normoactive bowel sounds No hepatomegaly, No splenomegaly No palpable mass No abdominal wall hernia noted Skin: Normal temperature, tone, texture, turgor No induration No subcutaneous nodules No rash, lesions No ulcers Extremities: No digital cyanosis No clubbing Pedal pulses intact and symmetrical Radial pulses intact and symmetrical No calf tenderness Psychiatric: Alert and oriented to person, place and time Appropriate affect fair judgment Neuro Muscles Strength 4 /5 in all 4 extremities Sensation to light touch grossly present throughout Cranial nerves II-XII grossly intact No focal sensory deficits Cerebellar exam finger nose intact bilaterally, heel stewart intact bilaterally. Plantar reflex equivocal bilateral, Reflexes could not be elicited, Lymphatics: no palpable cervical or supraclavicular , or inguinal lymph nodes Results CBC & Chem 7: 07/01/18 21:50 07/01/18 21:50 Labs: Abnormal Lab Results - Last 24 Hours (Table) 07/01/18 07/01/18 07/01/18 Range/Units 21:50 21:50 21:50 Hgb 9.7 L (11.4-16.0) gm/dL Hct 32.2 L (34.0-46.0) % MCV 77.6 L (80.0-100.0) fL MCH 23.5 L (25.0-35.0) pg MCHC 30.3 L (31.0-37.0) g/dL RDW 16.2 H (11.5-15.5) % D-Dimer 11.90 H (<0.60) mg/L FEU Carbon Dioxide 21 L (22-30) mmol/L BUN 44 H (7-17) mg/dL Creatinine 1.23 H (0.52-1.04) mg/dL Glucose 171 H (74-99) mg/dL Assessment and Plan Assessment: 77-year-old female with history of diabetes mellitus and hypertension admitted as observation with anticipated length of stay less than 48 hours patient sustained a fall at home and syncope she was found to have acute kidney injuury and dehydration admitted for monitoring and further evaluation Plan: Syncope Fall Fall precautions Computed tomography scan of the head was negative for any acute process Continue with neuro checks Cardiac telemetry Cardiology evaluation Monitor vital signs AK I, most likely secondary to prerenal ATN from dehydration Dehydration Hold diuretics Hold JOHNNIE inhibitor IV fluid hydration Monitor urine output Microcytic anemia This is chronic in nature unchanged from baseline Check iron studies Check fecal occult blood test Chronic conditions Osteoarthritis, pain control Hypertension, currently controlled Diabetes mellitus, insulin sliding scale DVT prophylaxis heparin subcu Preformed a thorough record review from recent hospitalization patient presented for a fall, had full neurologic evaluation and was cleared for discharge Surrogate decision-maker: Patient's Sr. CODE STATUS full code Discussed with: Patient, ER, RN Anticipated discharge: <[address]: Home A total of 60 minutes was spent on the care of this complex patient more than 50 % of the time was spent in counseling and care coordination.
[2018-07-02] MEDS: SODIUM CHLORIDE 0.9% 1,000 ML IV SCH ×2 (08:18→22:46)
[2018-07-02] MEDS: HEPARIN SODIUM,PORCINE 5,000 UNIT/ML 1 ML VIAL SQ SCH ×2 (08:18→20:20)
[2018-07-02] MEDS: ASPIRIN 81 MG PO SCH (08:18)
[2018-07-02] MEDS: PREGABALIN 75 MG CAP PO SCH ×3 (08:18→20:21)
[2018-07-02 08:48] VITALS: BMI 30.4
[2018-07-02] MEDS ORDERED: LISINOPRIL 10 MG TAB PO SCH (09:00)
--- NOTE | 2018-07-02 10:05 | US ---
EXAMINATION TYPE: US venous doppler duplex LE DATE OF EXAM: 07/02/2018 9:32 AM COMPARISON: NONE CLINICAL HISTORY: Elevated d-dimer. SIDE PERFORMED: Bilateral TECHNIQUE: The lower extremity deep venous system is examined utilizing real time linear array sonog dominique with graded compression, doppler sonography and color-flow sonography. VESSELS IMAGED: External Iliac Vein (EIV) Common Femoral Vein Deep Femoral Vein Greater Saphenous Vein * Femoral Vein Popliteal Vein Small Saphenous Vein * Proximal Calf Veins (* superficial vessels) There is normal flow, compressibility, vascular waveforms. Right Leg: Negative for DVT Left Leg: Negative for DVT IMPRESSION: No evident deep venous thrombosis at or above the knees, follow-up as indicated
[2018-07-02 10:21] LABS: Creatine Kinase 138 U/L (30-135)
[2018-07-02 10:33] LABS: Creatine Kinase MB 3.5 ng/mL (0.0-2.4); Troponin I <0.012 ng/mL (0.000-0.034)
[2018-07-02 11:53] LABS: Glucose,Whole Blood 123 mg/dL (75-99)
[2018-07-02] MEDS: INSULIN ASPART 100 UNIT/ML 1 ML 10 ML VIAL SQ SCH ×3 (12:00→21:21)
[2018-07-02 16:08] LABS: Iron Saturation 4.45 (12.00-45.00)
[2018-07-02 17:06] LABS: Glucose,Whole Blood 129 mg/dL (75-99)
[2018-07-02] MEDS: HYDROcodone/APAP 7.5-325MG 1 EACH TAB PO PRN (17:53)
[2018-07-02 20:44] LABS: Glucose,Whole Blood 149 mg/dL (75-99)
[2018-07-02] MEDS ORDERED: risperiDONE 1 MG TAB PO SCH (21:00)
[2018-07-03] MEDS: SODIUM CHLORIDE 0.9% 1,000 ML IV SCH (01:57)
[2018-07-03 07:02] LABS: Glucose,Whole Blood 144 mg/dL (75-99)
[2018-07-03 07:41] VITALS: PULSE 83
[2018-07-03] MEDS: INSULIN ASPART 100 UNIT/ML 1 ML 10 ML VIAL SQ SCH ×2 (08:13→13:52)
[2018-07-03] MEDS: PREGABALIN 75 MG CAP PO SCH ×2 (08:13→16:11)
[2018-07-03] MEDS: HEPARIN SODIUM,PORCINE 5,000 UNIT/ML 1 ML VIAL SQ SCH (08:13)
[2018-07-03] MEDS: ASPIRIN 81 MG PO SCH (08:13)
[2018-07-03] MEDS: HYDROcodone/APAP 7.5-325MG 1 EACH TAB PO PRN ×2 (08:48→17:17)
[2018-07-03] MEDS ORDERED: ASPIRIN 325 MG TAB PO SCH (09:00)
[2018-07-03 11:19] LABS: Glucose,Whole Blood 141 mg/dL (75-99)
--- NOTE | 2018-07-03 11:23 | ECHOF ---
Referral Reason:Syncope MEASUREMENTS -------- HEIGHT: 165.1 cm WEIGHT: 80.3 kg BP: IVSd: 1.1 cm (0.6 - 1.1) LVIDd: 3.8 cm (3.9 - 5.3) LVPWd: 1.1 cm (0.6 - 1.1) IVSs: 1.4 cm LVIDs: 2.9 cm LVPWs: 1.4 cm LA Diam: 3.2 cm (2.7 - 3.8) RVIDd: 2.5 cm (< 3.3) Ao Diam: 3.1 cm (2.0 - 3.7) LA Diam: 3.5 cm (2.7 - 3.8) AV Cusp: 2.0 cm (1.5 - 2.6) EPSS: 0.7 cm MV E Aman: 0.76 m/s MV DecT: 340 ms MV A Aman: 1.37 m/s MV E/A Ratio: 0.55 RAP: 5.00 mmHg RVSP: 11.68 mmHg MV EF SLOPE: 64.00 mm/s (70 - 150) MV EXCURSION: 17.70 mm (> 18.000) FINDINGS -------- Sinus rhythm. This was a technically adequate study. LV size, wall thickness and systolic function are normal, with an EF greater than 55%. The left yoselyn tricular size is normal. The right ventricle is normal in size. The left atrial size is normal. The right atrial size is normal. There is mild aortic valve sclerosis. There is no evidence of aortic regurgitation. The mitral valve leaflets are mildly thickened. Mild mitral annular calcification present. Mild m itral regurgitation is present. Mild tricuspid regurgitation present. There is no evidence of pulmonary hypertension. The right v entricular systolic pressure, as measured by Doppler, is 11.68mmHg. The pulmonic valve was not well visualized. The aortic root size is normal. There is no pericardial effusion. CONCLUSIONS -------- 1. LV size, wall thickness and systolic function are normal, with an EF greater than 55%. 2. The left ventricular size is normal. 3. The right ventricle is normal in size. 4. The left atrial size is normal. 5. The right atrial size is normal. 6. There is mild aortic valve sclerosis. 7. The mitral valve leaflets are mildly thickened. 8. Mild mitral annular calcification present. 9. Mild mitral regurgitation is present. 10. Mild tricuspid regurgitation present. 11. There is no evidence of pulmonary hypertension. 12. The right ventricular systolic pressure, as measured by Doppler, is 11.68mmHg. 13. The pulmonic valve was not well visualized. 14. The aortic root size is normal. 15. There is no pericardial effusion. BLADE SHARPENER: Nasima Banuelos RDCS
[2018-07-03 13:05] LABS: Anion Gap 5 mmol/L; Blood Urea Nitrogen 17 mg/dL (7-17); Calcium 8.8 mg/dL (8.4-10.2); Carbon Dioxide 23 mmol/L (22-30); Chloride 110 mmol/L (98-107); Glucose 122 mg/dL (74-99); Potassium 3.4 mmol/L (3.5-5.1); Sodium 138 mmol/L (137-145)
[2018-07-03 13:24] VITALS: BP 135/70; RESP 18; TEMP 97.8
--- NOTE | 2018-07-03 13:42 | XR ---
EXAMINATION TYPE: XR knee complete bilateral DATE OF EXAM: 07/03/2018 COMPARISON: NONE HISTORY: Pain TECHNIQUE: 3 views of each knee are submitted for a total of 6 views FINDINGS: There is diffuse osteopenia with vascular calcifications and postsurgical changes bilaterally. Soft t issue ossification or calcifications are seen. IMPRESSION: No acute fracture or dislocation.
--- NOTE | 2018-07-03 14:32 | P.DS ---
Providers Date of admission: 07/02/18 05:09 Expected date of discharge: 07/03/18 Attending physician: Anibal Uribe MD Primary care physician: James Camejo [facility] Course: 77-year-old female with history of diabetes mellitus, hypertension Patient was at her baseline status of health, she had a nap yesterday and then after waking up late in the evening she went to use the bathroom she uses a walker to ambulate. She denies any straining constipation or diarrhea she denies any bloody bowel movements or melena. Later on she went to the kitchen using her walker trying to get some water and while leaning against the countertop she fell and hit her head. She is not sure if she passed out but she thinks she might have but to her it was immediately she woke up found herself on the floor and activated the bracelet alert and notified EMS and was brought to the hospital. Patient denies any palpitations chest pain shortness of breath dizziness focal neurologic deficits like weakness numbness or tingling in any of her extremities denies any chest pain fevers chills nausea or vomiting. She reports that she was completely asymptomatic before and after the fall. He was unsure whether the patient had a syncopal episode or not. CT of the head and cervical spine was negative for any acute process. Pelvis x-ray was negative as well. Echocardiogram was done which showed an EF greater than 55% with normal wall motion. Telemetry was within normal limits throughout her admission. Troponin was less than 0.0122, ruling out acute coronary syndrome. Orthostats were negative as well. In discussion with the patient, this incident seemed to be rather a trip and fall from tremors rather than loss of consciousness. Cardiology was consulted and this was discontinued. Patient also had a extremely high d-dimer and there was some concern for PE. CTA of the chest excluded PE and duplex of the bilateral lower extremities were negative as well. Patient was evaluated by physical therapy and recommendation was made for inpatient rehab. Patient was seen and examined prior to discharge. No acute events overnight. Patient reports intermittent tremors in all 4 extremities, can occur at anytime. Not related to intention. Patient reports that she had a tremor of her lower extremity that might have caused her to fall rather than pass out. Patient also reports that she took 2 baclofen yesterday rather than 1 which could have led to her fall. She denies any cough, shortness of breath, chest pain or palpitations. She has not had any dizziness since admission. General: [non toxic], [no distress], [appears at stated age] Derm: [warm], [dry] Head: [atraumatic], [normocephalic], [symmetric] Eyes: [EOMI], [no lid lag], [anicteric sclera] Mouth: [no lip lesion], [mucus membranes moist] Cardiovascular: [S1S2 reg], [no murmur], [positive DP pulse bilateral] Lungs: [CTA bilateral], [no rhonchi, no rales] , [no accessory muscle use] Abdominal: [soft], [ nontender to palpation], [no guarding], [no appreciable organomegaly] Ext: [no gross muscle atrophy], [no edema], [no contractures] Neuro: [no focal neuro deficits] Psych: [Alert], [oriented], [appropriate affect] Assessment and Plan 1. Mechanical fall, possible syncopal episode 2. Acute kidney injury 3. Tremors 4. Osteoarthritis 5. Hypertension 6. Diabetes mellitus CT brain and C-spine has been negative. X-rays of the pelvis has been negative. I obtained x-rays of bilateral knees which is also been negative. Pain management with [place] as needed. Fall precautions. PT has evaluated the patient and recommended inpatient rehab for which she has been accepted. Initial creatinine of 1.23. 0.61 on repeat today. Likely prerenal azotemia. Continue normal saline at 120 mL/h. The etiology of her tremors are unknown. She has seen Dr. Murphy in the outpatient setting. We will recommend that she follow-up with neurology in the outpatient setting for further workup and treatment. Pain management as above. BP is 135/70. Monitor vitals, adjust medications as necessary. [id number] glucose is 141. Insulin sliding-scale. Hypoglycemic precautions. Regular Accu-Cheks. Patient was advised follow-up with her primary care provider within 1-2 days of discharge. Pertinent Studies: Chest CTA Head and neck CT Pelvic x-ray Echocardiogram Venous Doppler Patient Condition at Discharge: Stable Plan - Discharge Summary Discharge Rx Participant: No New Discharge Prescriptions: Continue risperiDONE [RisperDAL] 1 mg PO HS Baclofen [Lioresal] 20 mg PO HS PRN PRN Reason: Muscle Pain Aspirin EC [Ecotrin Low Dose] 81 mg PO DAILY HYDROcodone/APAP 7.5-325MG [[place] 7.5-325] 1 tab PO TID PRN PRN Reason: Pain Enalapril/Hydrochlorothiazide [Enalapril-Hctz 10-25 mg Tablet] 1 tab PO DAILY Zolpidem Tartrate [Ambien] 5 mg PO HS #0 Pregabalin [Lyrica] 75 mg PO TID Potassium Chloride ER [K-Dur 10] 10 meq PO DAILY Furosemide [Lasix] 40 mg PO DAILY Discharge Medication List Aspirin EC [Ecotrin Low Dose] 81 mg PO DAILY 02/03/18 [History] Baclofen [Lioresal] 20 mg PO HS PRN 02/03/18 [History] Enalapril/Hydrochlorothiazide [Enalapril-Hctz 10-25 mg Tablet] 1 tab PO DAILY [History] HYDROcodone/APAP 7.5-325MG [[place] 7.5-325] 1 tab PO TID PRN 02/03/18 [History] risperiDONE [RisperDAL] 1 mg PO HS 02/03/18 [History] Zolpidem Tartrate [Ambien] 5 mg PO HS #0 02/04/18 [Rx] Furosemide [Lasix] 40 mg PO DAILY 07/01/18 [History] Potassium Chloride ER [K-Dur 10] 10 meq PO DAILY 07/01/18 [History] Pregabalin [Lyrica] 75 mg PO TID 07/01/18 [History] Follow up Appointment(s)/Referral(s): James Groves MD [Primary Care Provider] - 1-2 days
== END 2018-07-03 17:30 ==
LOC: EC 21:13 → 1SOBS 07-02 05:09
PROVIDERS: ADMIT Internal Medicine; ATTEND Internal Medicine
DX: R25.1 Tremor, unspecified (principal); N17.9 Acute kidney failure, unspecified; E86.0 Dehydration; R79.89 Other specified abnormal findings of blood chemistry; M54.40 Lumbago with sciatica, unspecified side; I11.0 Hypertensive heart disease with heart failure; I50.9 Heart failure, unspecified; G25.81 Restless legs syndrome; D50.9 Iron deficiency anemia, unspecified; G47.00 Insomnia, unspecified; M19.90 Unspecified osteoarthritis, unspecified site; E11.9 Type 2 diabetes mellitus without complications; Z79.82 Long term (current) use of aspirin; Z79.4 Long term (current) use of insulin; Z79.899 Other long term (current) drug therapy; Z91.81 History of falling; Z83.3 Family history of diabetes mellitus; Z80.0 Family history of malignant neoplasm of digestive organs; Z91.14 Patient's other noncompliance with medication regimen; W01.0XXA Fall on same level from slipping, tripping and stumbling without subsequent striking against object, initial encounter; Y92.090 Kitchen in other non-institutional residence as the place of occurrence of the external cause
CPT/HCPCS: 96361 ×2; 96372 ×3; 96374; 99285; 36415 ×2; 93005; 93306; 97116; 97162; 97166; 85379; 80061; 80053; 80048; 84443; 82607; 82728; 82550 ×2; 82553 ×2; 83540; 83550; 84484 ×2; 85025; 85610; 85730; 81003; 86780; 73562; 72170; 93970; 72125; 70450; 71275; G0378 ×2; J2060; J1644 ×2; J1650

== ENCOUNTER → 2019-12-14 | Day surgery (SDC) | payer MEDICARE ==
[2019-12-11 10:00] VITALS: BMI 30.4
[~2019-12-14] MED LIST: ACETAMINOPHEN TAB 500 MG TAB ONE; ACETAMINOPHEN TAB 500 MG TAB PO ONE; BUPIVACAIN-EPI 0.25%-1:200,000 30 ML VIAL SQ ONE; DEXAMETHASONE SOD PHOSPHATE 10 MG/ML 1 ML VIAL IV ONE; HEPARIN SODIUM,PORCINE 5,000 UNIT/ML 1 ML VIAL ONE; HEPARIN SODIUM,PORCINE 5,000 UNIT/ML 1 ML VIAL SQ ONE; HYDROmorphone 0.5 MG/0.5 ML SYRINGE IVP PRN; LACTATED RINGERS 1,000 ML IV SCH; LIDOCAINE 1% (10MG/ML) FOR IV START INTRADERMA PRN; MIDAZOLAM 2 MG/2 ML VIAL IV PRN; MIDAZOLAM 2 MG/2 ML VIAL ONE; PROPOFOL 10 MG/ML 20 ML VIAL IV ONE; Pre Op ABX Message 1 EACH MISC MISCELLANE ONE; fentaNYL (PF) 50 MCG/ML 2 ML AMP ONE
[2019-12-14 07:15] VITALS: TEMP 98.1
[2019-12-14 07:29] LABS: Glucose,Whole Blood 110 mg/dL (75-99)
--- NOTE | 2019-12-14 08:41 | P.GSHP ---
History of Present Illness H&P Date: 12/14/19 Chief Complaint: Melanoma right upper arm This 79-year-old female who had recent biopsy the skin lesion of the right upper arm. The lesion is a melanoma. Patient presents today for wide local excision. Past Medical History Past Medical History: Cancer, Heart Failure, Diabetes Mellitus, Hypertension Additional Past Medical History / Comment(s): sciatic nerve pain, with rt leg weakness insomnia, RLS, melanoma rt upper arm History of Any Multi-Drug Resistant Organisms: None Reported Past Surgical History: Orthopedic Surgery Additional Past Surgical History / Comment(s): knees, achilles tendon repair Past Anesthesia/Blood Transfusion Reactions: No Reported Reaction Smoking Status: Never smoker - Past Family History Father Family Medical History: Diabetes Mellitus Additional Family Medical History / Comment(s): Mother History Unknown: Yes Additional Family Medical History / Comment(s): pancreatic tumor (patient does not believe it was cancerous) Medications and Allergies Home Medications Medication Instructions Recorded Confirmed Type Aspirin EC [Ecotrin Low Dose] 81 mg PO SUMOWEFR 02/03/18 12/14/19 History Enalapril/Hydrochlorothiazide 1 tab PO DAILY 02/03/18 12/14/19 History [Enalapril/Hydrochlorothiazide 10-25 mg Tablet] Furosemide [Lasix] 40 mg PO DAILY 07/01/18 12/14/19 History Potassium Chloride ER [K-Dur 10] 10 meq PO DAILY 07/01/18 12/14/19 History HYDROcodone/APAP 7.5-325MG [[place] 1 tab PO TID PRN #9 tab 07/03/18 12/14/19 Rx 7.5-325] Pregabalin [Lyrica] 75 mg PO TID #90 cap 07/03/18 12/14/19 Rx Zolpidem Tartrate [Ambien] 5 mg PO HS #3 tablet 07/03/18 12/14/19 Rx metFORMIN HCL 1,000 mg PO BID 12/10/19 12/14/19 History Allergies Allergy/AdvReac Type Severity Reaction Status Date / Time No Known Allergies Allergy Verified 12/10/19 09:26 Surgical - Exam Vital Signs Temp Pulse Resp BP Pulse Ox 98.1 F 66 16 145/81 96 12/14/19 07:12 12/14/19 07:12 12/14/19 07:12 12/14/19 07:12 12/14/19 07:12 - General well developed, well nourished, no distress - Eyes PERRL - ENT normal pinna - Neck no masses - Respiratory normal expansion - Cardiovascular Rhythm: regular - Abdomen Abdomen: soft, non tender - Integumentary 1 cm melanoma right upper arm with biopsy scar Results - Labs Abnormal Lab Results - Last 24 Hours (Table) 12/14/19 Range/Units 07:25 POC Glucose (mg/dL) 110 H (75-99) mg/dL Assessment and Plan Assessment: Melanoma right upper arm. We'll perform wide local excision
--- NOTE | 2019-12-14 09:44 | P.OP ---
Date of Procedure: 12/14/19 Preoperative Diagnosis: Melanoma right arm Postoperative Diagnosis: Melanoma right arm Procedure(s) Performed: Wide local excision of melanoma right arm Anesthesia: MAC Surgeon: Michael Cook Estimated Blood Loss (ml): 5 Pathology: other (Melanoma) Condition: stable Disposition: PACU Description of Procedure: Patient's placed the operative table in the supine position. She received IV sedation. Her right arm was prepped and draped usual sterile fashion. Patient a previous biopsy of the right upper arm melanoma. An elliptical skin incision was made around the melanoma site. Using electrocautery and sharp and blunt dissection the specimen was dissected free. The superior portion specimen was tagged with a 3-0 Vicryl suture. The Bovie hemostasis. The specimens of pathology. The wound was closed with 3-0 Vicryl for the deep layer and 3-0 Monocryl for the skin layer monitors applied. Patient top she will was sent to recovery in stable condition.
[2019-12-14 09:48] VITALS: BP 107/60; PULSE 61; RESP 17
--- NOTE | 2019-12-16 16:03 | CDI ---
Date: 12.16.2019 CDS/Infection Control Manager Name: Jaki Maza Phone: If any questions, call Karrie Mathews [facility] at [phone] Patient Name: Rita Olsen Admit Date: Discharge Date: 12.14.19 ATTENTION: The [facility] Coding Staff appreciate your assistance in clarifying documentation. Please respond to the clarification below the line at the bottom and electronically sign. The [facility] Coding staff will review the response and follow-up if needed. Please note: Queries are made part of the Legal Health Record. If you have any questions, please contact the [facility]. Dear Dr. Cook Please specify the diatmeter of the lesion you removed from the arm: __0.5 cm or less __0.6 to 1.0 cm __1.1 to 2.0 cm __2.1 to 3.0 cm __3.1 to 4.0 cm _x_over 4.0 cm Thank you for your kind consideration. Over 4 cm MTDD
== END | disposition home or self-care (01) ==
LOC: OR 06:56
PROVIDERS: ATTEND Surgery
DX: L57.0 Actinic keratosis (principal); L81.4 Other melanin hyperpigmentation; C43.61 Malignant melanoma of right upper limb, including shoulder; I11.0 Hypertensive heart disease with heart failure; I50.9 Heart failure, unspecified; E11.9 Type 2 diabetes mellitus without complications; M54.30 Sciatica, unspecified side; G47.00 Insomnia, unspecified; G25.81 Restless legs syndrome; K08.89 Other specified disorders of teeth and supporting structures; Z98.890 Other specified postprocedural states; Z87.39 Personal history of other diseases of the musculoskeletal system and connective tissue; Z85.820 Personal history of malignant melanoma of skin; Z79.82 Long term (current) use of aspirin; Z79.899 Other long term (current) drug therapy; Z79.84 Long term (current) use of oral hypoglycemic drugs; Z83.3 Family history of diabetes mellitus; Z83.79 Family history of other diseases of the digestive system; W89.9XXA Exposure to unspecified man-made visible and ultraviolet light, initial encounter
CPT/HCPCS: 88305; 11406; J2250; J1644; J1100; J3010; J2704

== ENCOUNTER 2020-08-26 10:02 | Emergency (ER) | payer MEDICARE ==
[2020-08-26 11:16] LABS: Basophils # (A) 0.1 k/uL (0-0.2); Basophils % (A) 1 %; Eosinophils # (A) 0.1 k/uL (0-0.7); Eosinophils % (A) 2 %; HCT 39.8 % (34.0-46.0); Lymphocytes # (A) 1.7 k/uL (1.0-4.8); Lymphocytes % (A) 26 %; MCH 29.8 pg (25.0-35.0); MCHC 32.6 g/dL (31.0-37.0); MCV 91.6 fL (80.0-100.0); Mean Platelet Volume 9.2; Monocytes # (A) 0.5 k/uL (0-1.0); Monocytes % (A) 7 %; Neutrophils # (A) 4.2 k/uL (1.3-7.7); Neutrophils % (A) 62 %; Platelet Count 182 k/uL (150-450); RBC 4.35 m/uL (3.80-5.40); RDW 14.4 % (11.5-15.5); WBC 6.8 k/uL (3.8-10.6)
[2020-08-26 11:28] LABS: Partial Thromboplastin Time 23.7 sec (22.0-30.0); Prothrombin Time 10.5 sec (9.0-12.0)
[2020-08-26 11:38] LABS: Albumin 4.2 g/dL (3.5-5.0); Calcium 9.4 mg/dL (8.4-10.2); Potassium 3.7 mmol/L (3.5-5.1); Total Bilirubin 0.4 mg/dL (0.2-1.3); Total Protein 7.1 g/dL (6.3-8.2)
--- NOTE | 2020-08-26 11:56 | XR ---
EXAMINATION TYPE: XR chest 2V DATE OF EXAM: 08/26/2020 COMPARISON: 02/03/2018 HISTORY: Shortness of breath TECHNIQUE: Frontal and lateral views of the chest are obtained. FINDINGS: Scattered senescent parenchymal changes noted. Hyperinflation compatible with COPD. No evidence for infiltrate. No evidence for atelectasis. Heart size is stable. Mediastinal structures are stable and grossly unremarkable. No evidence for hilar prominence. Degenerative changes dorsal spine. IMPRESSION: 1. No evidence for acute pulmonary disease.
[2020-08-26 11:58] LABS: Appearance,Urine Clear (Clear); Bacteria,Urine Rare /hpf; Bilirubin,Urine Negative (Negative); Blood,Urine Negative (Negative); Color,Urine Light Yellow; Glucose,Urine (UA) Negative (Negative); Hyaline Casts,Urine 7 /lpf (0-2); Ketones,Urine Negative (Negative); Leukocyte Esterase,Urine Large (Negative); Nitrite,Urine Positive (Negative); Protein,Urine Negative (Negative); RBC,Urine <1 /hpf (0-5); Specific Gravity,Urine 1.009 (1.001-1.035); Squamous Epithelial Cell,Urine <1 /hpf (0-4); Urobilinogen,Urine <2.0 mg/dL (<2.0); WBC,Urine 10 /hpf (0-5)
[2020-08-26] MEDS ORDERED: SODIUM CHLORIDE 0.9% 500 ML 500 ML IV ONE (12:22)
[2020-08-26] MEDS ORDERED: cefTRIAXone IN SWFI 1,000 MG/10 ML SYRINGE IVP STA (12:23)
--- NOTE | 2020-08-26 12:28 | ED ---
Extremity Problem HPI - General Chief complaint: Extremity Problem,Nontraumatic Stated complaint: weakness Time Seen by Provider: 08/26/20 10:12 Source: patient, EMS Mode of arrival: EMS Limitations: no limitations - History of Present Illness Initial comments: 7-year-old female presents emergency department today for chief complaint of leg weakness. Patient states that she felt weaker than normal today. She states that she went to get up from her chair and she could not she became scared. She said she called EMS. Upon arrival she states that she feels fine and that her legs feel strong. Patient denies any fevers chills general malaise dysuria urgency frequency chest pain shortness of breath she denies any localized weakness or sensation deficit she denies any headache visual changes speech changes nausea vomiting diarrhea or recent viral illnesses. Patient denies any new back pain loss of bowel bladder control or urinary retention. Patient denies any IV drug use fevers or history of cancer she denies any falls or injury to the legs or the back. Remaining review of systems negative upon arrival patient does appear well nontoxic in no acute distress she states she feels silly for being here - Related Data Home Medications Medication Instructions Recorded Confirmed Aspirin EC [Ecotrin Low Dose] 81 mg PO SUMOWEFR 02/03/18 12/14/19 Enalapril/Hydrochlorothiazide 1 tab PO DAILY 02/03/18 12/14/19 [Enalapril/Hydrochlorothiazide 10-25 mg Tablet] Furosemide [Lasix] 40 mg PO DAILY 07/01/18 12/14/19 Potassium Chloride ER [K-Dur 10] 10 meq PO DAILY 07/01/18 12/14/19 metFORMIN HCL 1,000 mg PO BID 12/10/19 12/14/19 Previous Rx's Medication Instructions Recorded HYDROcodone/APAP 7.5-325MG [[place] 1 tab PO TID PRN #9 tab 07/03/18 7.5-325] Pregabalin [Lyrica] 75 mg PO TID #90 cap 07/03/18 Zolpidem Tartrate [Ambien] 5 mg PO HS #3 tablet 07/03/18 Cephalexin [Keflex] 500 mg PO Q6HR 7 Days #28 cap 08/26/20 Allergies Allergy/AdvReac Type Severity Reaction Status Date / Time No Known Allergies Allergy Verified 03/26/21 10:12 Review of Systems ROS Statement: Those systems with pertinent positive or pertinent negative responses have been documented in the HPI. ROS Other: All systems not noted in ROS Statement are negative. Past Medical History Past Medical History: Cancer, Heart Failure, Diabetes Mellitus, Hypertension Additional Past Medical History / Comment(s): sciatic nerve pain, with rt leg weakness insomnia, RLS, melanoma rt upper arm History of Any Multi-Drug Resistant Organisms: None Reported Past Surgical History: Orthopedic Surgery Additional Past Surgical History / Comment(s): knees, achilles tendon repair Past Anesthesia/Blood Transfusion Reactions: No Reported Reaction Past Psychological History: No Psychological Hx Reported Smoking Status: Never smoker Past Alcohol Use History: None Reported Past Drug Use History: None Reported - Past Family History Father Family Medical History: Diabetes Mellitus Additional Family Medical History / Comment(s): Mother History Unknown: Yes Additional Family Medical History / Comment(s): pancreatic tumor (patient does not believe it was cancerous) General Exam - General Exam Comments Initial Comments: General: The patient is awake and alert, in no distress Eye: +3 mm pupils are equal, round and reactive to light, extra-ocular movements are intact. No nystagmus. There is normal conjunctiva bilaterally. No signs of icterus. Ears, nose, mouth and throat: There are moist mucous membranes and no oral lesions. Neck: The neck is supple, there is no tenderness or JVD. Cardiovascular: There is a regular rate and rhythm. No murmur, rub or gallop is appreciated. Respiratory: Lungs are clear to auscultation, respirations are non-labored, breath sounds are equal. No wheezes, stridor, rales, or rhonchi. Gastrointestinal: Soft, non-distended, non-tender abdomen without masses or organomegaly noted. There is no rebound or guarding present. Musculoskeletal: Normal ROM, no tenderness. Strength 5/5 of the LE b/l. Sensation intact of the LE b/l including the saddle region. Radial and DP pulses equal bilaterally 2+. Can ambulate wihtout difficulty. Neurological: A&O x 3. CN II-XII intact grossly, There are no obvious motor or sensory deficits. Coordination appears grossly intact. Speech is normal. Skin: Skin is warm and dry and no rashes or lesions are noted. Psychiatric: Cooperative, appropriate mood & affect, normal judgment. Limitations: no limitations Course Vital Signs 08/26/20 08/26/20 08/26/20 10:09 12:12 13:47 Temperature 97.7 F 98.3 F Pulse Rate 75 71 Respiratory 20 16 16 Rate Blood Pressure 117/64 128/82 127/72 O2 Sat by Pulse 98 98 Oximetry Medical Decision Making - Medical Decision Making She has mild increase in her creatinine and BUNs suspicious for dehydration. Patient also has positive nitrates in her urine with 10 white blood cells which is felt to be infectious in nature. Patient be treated with IV antibiotics. Patient has no decreased strength on examination no strokelike or focal neurological deficits. Patient is able to ambulate. I believe patient's generalized weakness is secondary to possible developing urinary tract infection as well as a component of dehydration at this time we feel patient is stable fo r discharge after IV hydration and antibiotics was discharged on oral antibiotics and primary care follow-up patient is to return for worsening symptoms and she states she feels safe in his control discharge at this time. Case discussed with Dr. Coffman who is agreeable to this care plan. - Lab Data Result diagrams: 08/26/20 10:54 08/26/20 10:54 Lab Results 08/26/20 08/26/20 08/26/20 Range/Units 10:54 10:54 10:54 WBC 6.8 (3.8-10.6) k/uL RBC 4.35 (3.80-5.40) m/uL Hgb 13.0 (11.4-16.0) gm/dL Hct 39.8 (34.0-46.0) % MCV 91.6 (80.0-100.0) fL MCH 29.8 (25.0-35.0) pg MCHC 32.6 (31.0-37.0) g/dL RDW 14.4 (11.5-15.5) % Plt Count 182 (150-450) k/uL MPV 9.2 Neutrophils % 62 % Lymphocytes % 26 % Monocytes % 7 % Eosinophils % 2 % Basophils % 1 % Neutrophils # 4.2 (1.3-7.7) k/uL Lymphocytes # 1.7 (1.0-4.8) k/uL Monocytes # 0.5 (0-1.0) k/uL Eosinophils # 0.1 (0-0.7) k/uL Basophils # 0.1 (0-0.2) k/uL PT 10.5 (9.0-12.0) sec INR 1.0 (<1.2) APTT 23.7 (22.0-30.0) sec Sodium (137-145) mmol/L Potassium (3.5-5.1) mmol/L Chloride (98-107) mmol/L Carbon Dioxide (22-30) mmol/L Anion Gap mmol/L BUN (7-17) mg/dL Creatinine (0.52-1.04) mg/dL Est GFR (CKD-EPI)AfAm (>60 ml/min/1.73 sqM) Est GFR (CKD-EPI)NonAf (>60 ml/min/1.73 sqM) Glucose (74-99) mg/dL Lactic Ac Sepsis Rflx Plasma Lactic Acid Yossi (0.7-2.0) mmol/L Calcium (8.4-10.2) mg/dL Total Bilirubin (0.2-1.3) mg/dL AST (14-36) U/L ALT (4-34) U/L Alkaline Phosphatase (38-126) U/L Troponin I (0.000-0.034) ng/mL NT-Pro-B Natriuret Pep pg/mL Total Protein (6.3-8.2) g/dL Albumin (3.5-5.0) g/dL TSH (0.465-4.680) mIU/L Urine Color Light Yellow Urine Appearance Clear (Clear) Urine pH 5.0 (5.0-8.0) Ur Specific [place] 1.009 (1.001-1.035) Urine Protein Negative (Negative) Urine Glucose (UA) Negative (Negative) Urine Ketones Negative (Negative) Urine Blood Negative (Negative) Urine Nitrite Positive H (Negative) Urine Bilirubin Negative (Negative) Urine Urobilinogen <2.0 (<2.0) mg/dL Ur Leukocyte Esterase Large H (Negative) Urine RBC <1 (0-5) /hpf Urine WBC 10 H (0-5) /hpf Ur Squamous Epith Cells <1 (0-4) /hpf Urine Bacteria Rare H (None) /hpf Hyaline Casts 7 H (0-2) /lpf Coronavirus (PCR) (Not Detectd) 08/26/20 08/26/2021 Range/Units 10:54 10:54 10:54 WBC (3.8-10.6) k/uL RBC (3.80-5.40) m/uL Hgb (11.4-16.0) gm/dL Hct (34.0-46.0) % MCV (80.0-100.0) fL MCH (25.0-35.0) pg MCHC (31.0-37.0) g/dL RDW (11.5-15.5) % Plt Count (150-450) k/uL MPV Neutrophils % % Lymphocytes % % Monocytes % % Eosinophils % % Basophils % % Neutrophils # (1.3-7.7) k/uL Lymphocytes # (1.0-4.8) k/uL Monocytes # (0-1.0) k/uL Eosinophils # (0-0.7) k/uL Basophils # (0-0.2) k/uL PT (9.0-12.0) sec INR (<1.2) APTT (22.0-30.0) sec Sodium 137 (137-145) mmol/L Potassium 3.7 (3.5-5.1) mmol/L Chloride 102 (98-107) mmol/L Carbon Dioxide 24 (22-30) mmol/L Anion Gap 11 mmol/L BUN 20 H (7-17) mg/dL Creatinine 1.11 H (0.52-1.04) mg/dL Est GFR (CKD-EPI)AfAm 54 (>60 ml/min/1.73 sqM) Est GFR (CKD-EPI)NonAf 47 (>60 ml/min/1.73 sqM) Glucose 127 H (74-99) mg/dL Lactic Ac Sepsis Rflx Plasma Lactic Acid Yossi 2.9 H* (0.7-2.0) mmol/L Calcium 9.4 (8.4-10.2) mg/dL Total Bilirubin 0.4 (0.2-1.3) mg/dL AST 26 (14-36) U/L ALT 14 (4-34) U/L Alkaline Phosphatase 99 (38-126) U/L Troponin I 0.024 (0.000-0.034) ng/mL NT-Pro-B Natriuret Pep pg/mL Total Protein 7.1 (6.3-8.2) g/dL Albumin 4.2 (3.5-5.0) g/dL TSH 4.210 (0.465-4.680) mIU/L Urine Color Urine Appearance (Clear) Urine pH (5.0-8.0) Ur Specific [place] (1.001-1.035) Urine Protein (Negative) Urine Glucose (UA) (Negative) Urine Ketones (Negative) Urine Blood (Negative) Urine Nitrite (Negative) Urine Bilirubin (Negative) Urine Urobilinogen (<2.0) mg/dL Ur Leukocyte Esterase (Negative) Urine RBC (0-5) /hpf Urine WBC (0-5) /hpf Ur Squamous Epith Cells (0-4) /hpf Urine Bacteria (None) /hpf Hyaline Casts (0-2) /lpf Coronavirus (PCR) (Not Detectd) 08/26/20 08/26/20 08/26/20 Range/Units 10:54 10:54 11:45 WBC (3.8-10.6) k/uL RBC (3.80-5.40) m/uL Hgb (11.4-16.0) gm/dL Hct (34.0-46.0) % MCV (80.0-100.0) fL MCH (25.0-35.0) pg MCHC (31.0-37.0) g/dL RDW (11.5-15.5) % Plt Count (150-450) k/uL MPV Neutrophils % % Lymphocytes % % Monocytes % % Eosinophils % % Basophils % % Neutrophils # (1.3-7.7) k/uL Lymphocytes # (1.0-4.8) k/uL Monocytes # (0-1.0) k/uL Eosinophils # (0-0.7) k/uL Basophils # (0-0.2) k/uL PT (9.0-12.0) sec INR (<1.2) APTT (22.0-30.0) sec Sodium (137-145) mmol/L Potassium (3.5-5.1) mmol/L Chloride (98-107) mmol/L Carbon Dioxide (22-30) mmol/L Anion Gap mmol/L BUN (7-17) mg/dL Creatinine (0.52-1.04) mg/dL Est GFR (CKD-EPI)AfAm (>60 ml/min/1.73 sqM) Est GFR (CKD-EPI)NonAf (>60 ml/min/1.73 sqM) Glucose (74-99) mg/dL Lactic Ac Sepsis Rflx Y Plasma Lactic Acid Yossi (0.7-2.0) mmol/L Calcium (8.4-10.2) mg/dL Total Bilirubin (0.2-1.3) mg/dL AST (14-36) U/L ALT (4-34) U/L Alkaline Phosphatase (38-126) U/L Troponin I (0.000-0.034) ng/mL NT-Pro-B Natriuret Pep 71 pg/mL Total Protein (6.3-8.2) g/dL Albumin (3.5-5.0) g/dL TSH (0.465-4.680) mIU/L Urine Color Urine Appearance (Clear) Urine pH (5.0-8.0) Ur Specific [place] (1.001-1.035) Urine Protein (Negative) Urine Glucose (UA) (Negative) Urine Ketones (Negative) Urine Blood (Negative) Urine Nitrite (Negative) Urine Bilirubin (Negative) Urine Urobilinogen (<2.0) mg/dL Ur Leukocyte Esterase (Negative) Urine RBC (0-5) /hpf Urine WBC (0-5) /hpf Ur Squamous Epith Cells (0-4) /hpf Urine Bacteria (None) /hpf Hyaline Casts (0-2) /lpf Coronavirus (PCR) Not Detected (Not Detectd) Disposition Clinical Impression: Weakness, UTI (urinary tract infection) Disposition: HOME SELF-CARE Condition: Good Instructions (If sedation given, give patient instructions): Urinary Tract Infection in Women (ED) Additional Instructions: Please use medication as discussed. Please follow-up with family doctor in the next 2 days. Please return to emergency room if the symptoms increase or worsen or for any other concerns. Prescriptions: Cephalexin [Keflex] 500 mg PO Q6HR 7 Days #28 cap Is patient prescribed a controlled substance at d/c from ED?: No Referrals: James Groves MD [Primary Care Provider] - 1-2 days Time of Disposition: 12:28
[2020-08-26 12:54] VITALS: RESP 16
[2020-08-26 13:48] VITALS: BP 127/72; PULSE 71; TEMP 98.3
== END 2020-08-26 13:49 | disposition home or self-care (01) ==
LOC: EC 10:02
DX: N39.0 Urinary tract infection, site not specified (principal); R53.1 Weakness; E11.9 Type 2 diabetes mellitus without complications; I11.0 Hypertensive heart disease with heart failure; I50.9 Heart failure, unspecified; Z20.822 Contact with and (suspected) exposure to COVID-19; Z79.84 Long term (current) use of oral hypoglycemic drugs; Z79.82 Long term (current) use of aspirin; Z79.899 Other long term (current) drug therapy; Z85.820 Personal history of malignant melanoma of skin
CPT/HCPCS: 36415; 93005; 83880; 80053; 84443; 83605; 84484; 85025; 85610; 85730; 81001; 87635; 71046; 99285; 96374; J0696

== ENCOUNTER → 2022-06-05 | Outpatient (CLI) | payer MEDICARE ==
--- NOTE | 2022-06-08 10:03 | MR ---
EXAMINATION TYPE: MR pelvis wo/w con DATE OF EXAM: 06/05/2022 COMPARISON: None CLINICAL INDICATION:Female, 81 years old with history of rectal ca; TECHNIQUE: Triplane multisequence imaging was performed of the pelvis. IV Contrast: 8 cc Gadavist FINDINGS: Reproductive: Vagina: Unremarkable. Uterus: The uterus is anteverted in position. Uterus measures 6.7 x 2.4 x 4.8 cm. The endometrium and junctional zone are within normal limits. Multiple nabothian cysts are seen in the lower uterine se gment. Ovaries: The ovaries are not definitively visualized and may be atrophic. Bladder: Unremarkable. Bowel: Unremarkable as visualized. Peritoneum: A small amount of free fluid in the pelvis. Lymph nodes: No evidence of adenopathy. Vasculature: Unremarkable. Musculoskeletal: Bone marrow signal is within normal signal intensity. Abdominal wall/soft tissues: Unremarkable. RECTAL: IMAGE QUALITY: Adequate PRIMARY TUMOR: MORPHOLOGY, LOCATION, AND CHARACTERISTICS: Distance to anal verge: 2.1 cm Distance to top of anal sphincter complex/anorectal junction: 0.0 cm Relationship to the anterior peritoneal reflection: straddles Craniocaudal length: 4.1 cm Circumferential location (o'clock position): 3 o'clock to 12 o'clock Morphology: Semi-Annular Mucinous: No MRI Rectal Cancer T Category: T3b (tumor penetrates 1-5 mm beyond muscularis propria). There is no invasion of adjacent structures. FOR LOW RECTAL TUMORS - Invasion of anal sphincter complex Invades internal sphincter only Level of invasion: Upper anal canal EXTRAMURAL VENOUS INVASION (EMVI): No CIRCUMFERENTIAL RESECTION MARGIN (for T3 only) Shortest distance of tumor to MRF (or anticipated CRM): 10 mm (location) inferior posterior lateral l eft. (not applicable if tumor at peritonealized portion of the rectum) Is there a separate tumor deposit, lymph node, or EMVI threatening (> 1 mm and < 2 mm) or invading (< 1 mm) the MRF (if yes, note location): presacral lymph node. LYMPH NODES: Mesorectal/superior rectal lymph nodes and/or tumor deposits: Presacral lymph node node measuring up to 10 mm in short axis series 901 image 48, 501 image 14. N1 - 1-3 suspicious cirilo-rectal nodes *Suspicious morphologic criteria: (1) round shape, (2) irregular borders, (3) heterogenous signal int ensity Superior most suspicious lymph node/deposit is located: Presacral Extramesorectal lymph nodes: any suspicious: Yes. Presacral mentioned above Locoregional: internal iliac, obturator M1: external iliac, common iliac, inguinal, retroperitoneal OTHER: IMPRESSION: Stage: T3b N1 CRM: Threatened near the rectal junction Sphincter Involvement: Yes, this abuts the anorectal junction. Suspicious extramesorectal nodes: Yes, presacral lymph node
== END | disposition home or self-care (01) ==
LOC: RADMRIMAIN 13:11
PROVIDERS: ATTEND Internal Medicine
DX: C20 Malignant neoplasm of rectum (principal)
CPT/HCPCS: 72197; A9585

== ENCOUNTER → 2023-06-14 | Outpatient (CLI) | payer MEDICARE ==
[~2023-06-14] MED LIST changes: -ACETAMINOPHEN TAB 500 MG TAB ONE; -ACETAMINOPHEN TAB 500 MG TAB PO ONE; -BUPIVACAIN-EPI 0.25%-1:200,000 30 ML VIAL SQ ONE; -DEXAMETHASONE SOD PHOSPHATE 10 MG/ML 1 ML VIAL IV ONE; -HEPARIN SODIUM,PORCINE 5,000 UNIT/ML 1 ML VIAL ONE; -HEPARIN SODIUM,PORCINE 5,000 UNIT/ML 1 ML VIAL SQ ONE; -HYDROmorphone 0.5 MG/0.5 ML SYRINGE IVP PRN; -LACTATED RINGERS 1,000 ML IV SCH; -LIDOCAINE 1% (10MG/ML) FOR IV START INTRADERMA PRN; -MIDAZOLAM 2 MG/2 ML VIAL IV PRN; -MIDAZOLAM 2 MG/2 ML VIAL ONE; -PROPOFOL 10 MG/ML 20 ML VIAL IV ONE; -Pre Op ABX Message 1 EACH MISC MISCELLANE ONE; +SODIUM CHLORIDE 0.9% 500 ML 500 ML in EMPTY BAG 1 BAG IV PRN; +ZOLEDRONIC ACID 5 MG in SODIUM CHLORIDE 0.9% 100 ML IV NR; -fentaNYL (PF) 50 MCG/ML 2 ML AMP ONE
[2023-06-14 14:17] VITALS: BP 155/65; PULSE 56; RESP 16; TEMP 97.7
== END ==
LOC: PROCWHC3 12:58
PROVIDERS: ATTEND Family Medicine
DX: M81.0 Age-related osteoporosis without current pathological fracture (principal)
CPT/HCPCS: 96365; J3489

== ENCOUNTER → 2023-08-13 | Outpatient (CLI) | payer MEDICARE ==
[2023-08-13 12:43] LABS: African American GFR (CKD) 83 (>60 ml/min/1.73 sqM); Blood Urea Nitrogen 16 mg/dL (7-17); Non-African American GFR(CKD) 72 (>60 ml/min/1.73 sqM)
--- NOTE | 2023-08-13 14:48 | CT ---
EXAMINATION: CT CHEST, ABDOMEN AND PELVIS WITH IV CONTRAST DATE OF EXAMINATION: 08/13/2023. COMPARISON: CT angiography of the chest on 07/01/2018.. INDICATION: History of colon cancer. PROCEDURE: Axial CT of the chest, abdomen and pelvis was performed following the intravenous adminis tration of 100 ml Isovue 300. Coronal and sagittal reformats were performed. CT dose lowering techniq ues were used, to include: automated exposure control, adjustment for patient size, and/or use of ite rative reconstruction. FINDINGS: CHEST: Mediastinum and Cira: There is no axillary, mediastinal or hilar lymphadenopathy. Pleural and Pericardial spaces: There are no pleural or pericardial effusions. Cardiovascular: The thoracic aorta is normal in size without evidence of aneurysm or dissection. Mode rate coronary artery calcifications are seen. Pulmonary Artery: There are no central pulmonary arterial filling defects. Lung Parenchyma and Airways: There is a area of parenchymal change in air bronchograms within the rig ht upper lobe which may relate to an area of scarring or possibly post treatment changes. Inflammatio n or infection cannot be excluded. Attention on follow-up. The lungs otherwise appear clear. ABDOMEN: Liver and Biliary system: Normal. Adrenal glands: Normal. Kidneys and ureters: Normal. Spleen: Normal. Pancreas: Normal. Gallbladder: Multiple gallstones are seen within the gallbladder. Lymph nodes, Peritoneum and mesentery: There is no mesenteric or retroperitoneal lymphadenopathy. Gastrointestinal tract: There are no dilated loops of bowel or free intraperitoneal air. . There is a small hiatal hernia. There is no evidence of appendicitis. Aorta/IVC: There is mild vascular calcification throughout the abdominal aorta without evidence of aneurysmal dilation or dissection.. IVC normal. Abdominal wall: Normal. PELVIS: Fluid: There is no free fluid in the pelvis. Lymph Nodes: There is no pelvic or inguinal lymphadenopathy.. Urinary bladder: Normal. BONES: There is marked irregularity of the glenoid bilaterally which has large irregular appearing e ffusions and has a similar appearance to the previous examination. Significant degenerative changes a re noted. There are multilevel degenerative disc and facet changes seen throughout the spine. There a re no acute osseous abnormalities. Prior multilevel laminectomies are also seen in the lumbar region. ADDITIONAL SIGNIFICANT FINDINGS: None. IMPRESSION: 1. Parenchymal abnormality within the right upper lobe could potentially relate to prior treatment ch marek versus atelectasis or scarring. Infection would not be entirely excluded. Attention on follow-up . 2. Small hiatal hernia. 3. Cholelithiasis. 4. Marked abnormality of the glenoid bilaterally with large effusions and significant degenerative ch anges. Deformity of the clinoids are seen bilaterally and similar to progress since the previous exam ination. 5. Additional findings as above.
== END | disposition home or self-care (01) ==
LOC: RADCTMAIN 11:46
PROVIDERS: ATTEND Internal Medicine
DX: K80.20 Calculus of gallbladder without cholecystitis without obstruction (principal); K44.9 Diaphragmatic hernia without obstruction or gangrene; J98.4 Other disorders of lung; M25.411 Effusion, right shoulder; M25.412 Effusion, left shoulder; M89.8X1 Other specified disorders of bone, shoulder; C20 Malignant neoplasm of rectum; C4A.61 Merkel cell carcinoma of right upper limb, including shoulder; I82.91 Chronic embolism and thrombosis of unspecified vein; Z71.3 Dietary counseling and surveillance
CPT/HCPCS: 82565; 84520; 71260; 74177; Q9967

== ENCOUNTER → 2023-09-18 | Outpatient (CLI) | payer MEDICARE ==
--- NOTE | 2023-09-19 13:11 | MR ---
EXAMINATION TYPE: MR Rectal wo/w con DATE OF EXAM: 09/18/2023 3:44 PM CLINICAL INDICATION:Female, 82 years old with history of C20 RECTA; Rectal cancer. COMPARISON: None TECHNIQUE: Multiplanar, multisequence imaging was performed on a 3T MR scanner with optimized small f ield of view imaging of the rectum. Orthogonal high resolution T2 weighted imaging was obtained thro ugh the rectal mass with additional sequences including T1 weighted images and diffusion weighted zenia ging. IV CONTRAST: 7.5GadavistNone. FINDINGS: IMAGE QUALITY: Adequate PRIMARY TUMOR: MORPHOLOGY, LOCATION, AND CHARACTERISTICS: Distance to anal verge: 4.2 cm Distance to top of anal sphincter complex/anorectal junction: 0.0 cm Relationship to the anterior peritoneal reflection: below Craniocaudal length: 5.0 cm Circumferential location (o'clock position): 3 o'clock to 12 o'clock Morphology: Annular Mucinous: No MRI Rectal Cancer T Category: T3b (tumor penetrates 1-5 mm beyond muscularis propria). There is no invasion of adjacent structures. FOR LOW RECTAL TUMORS - Invasion of anal sphincter complex Invades internal sphincter only Level of invasion: Upper anal canal EXTRAMURAL VENOUS INVASION (EMVI): No CIRCUMFERENTIAL RESECTION MARGIN (for T3 only) Shortest distance of tumor to MRF (or anticipated CRM): 2 mm (location) posteriorly series 901 image 17. (not applicable if tumor at peritonealized portion of the rectum) Is there a separate tumor deposit, lymph node, or EMVI threatening (> 1 mm and < 2 mm) or invading (< 1 mm) the mesorectal fascia (MRF) (if yes, note location): No LYMPH NODES: Mesorectal/superior rectal lymph nodes and/or tumor deposits: N1 - 1-3 suspicious cirilo-rectal nodes *Suspicious morphologic criteria: (1) round shape, (2) irregular borders, (3) heterogenous signal int ensity Superior most suspicious lymph node/deposit is located: Presacral lymph node measuring up to 10 mm, p reviously 12 mm in greatest dimension. Series 601 image 17. Extra-mesorectal lymph nodes: any suspicious: . None (mesorectal, superior rectal, middle rectal, inferior rectal, sigmoid mesenteric, inferior mesenteric , lateral sacral, presacral, sacral promontory) Locoregional: internal iliac, obturator M1: external iliac, common iliac, inguinal, retroperitoneal OTHER: IMPRESSION: T Stage: T3b . N Stage: N1 - 1-3 suspicious cirilo-rectal nodes, fractional decrease in size of presacral lymph node p ossibly due to slice selection. CRM: Threatened Sphincter Involvement: Yes Suspicious extramesorectal nodes: Yes
== END | disposition home or self-care (01) ==
LOC: RADMRIMAIN 13:33
PROVIDERS: ATTEND Internal Medicine
DX: C20 Malignant neoplasm of rectum (principal)
CPT/HCPCS: 72197; A9585

== ENCOUNTER → 2024-01-06 | Outpatient (CLI) | payer MEDICARE ==
--- NOTE | 2024-02-18 12:52 | MR ---
Patient Rita Olsen M ID [id number] Order # Procedure MR Pelvis w/wo con Date 01/06/2024 12:56:36 PM EXAMINATION TYPE: MR pelvis w con DATE OF EXAM: 01/06/2024 CLINICAL INDICATION:C20 Rectal CA. F/U rectal CA, Upper Leg Right [place] cell carcinoma, pain. COMPARISON: Pet/CT for 09/25/2023 TECHNIQUE: Triplane multisequence imaging was performed of the pelvis. IV Contrast: 7.5 ml Gadavist FINDINGS: Reproductive: Vagina: Unremarkable. Uterus: The uterus is anteverted in position. Uterus is within normal. The endometrium and junctional zone are within normal limits. Multiple nabothian cysts are seen in the lower uterine segment. Ovaries: Ovaries not definitively visualized. Bladder: Unremarkable. Bowel: Rectal cancer is less conspicuous on today's exam. This is nonrectal mass protocol MRI which l imits evaluation and comparison. The area of concern in and the posterior aspect of the rectum demons trate an area of tumor extending from 3-9 o'clock and thought to extend in a similar location compare d to prior with possible more superior satellite lesion more cephalad close to and possibly still com municating with the primary area which is difficult to evaluate given technique and nonrectal MRI. Peritoneum: No free fluid or adenopathy. Lymph nodes: Presacral lymph node in the left measuring 8 mm in short axis and is similar. Vasculature: Unremarkable. Musculoskeletal: Bone marrow signal is within normal signal intensity. Remote injury to the sacrum wi th angulation at S4 noted. Severe degeneration changes throughout the spine. Abdominal wall/soft tissues: Unremarkable. IMPRESSION: 1. Posttreatment changes with persistent suspected tumor extending from 3-9 o'clock and thought to e xtend similar location of prior superiorly. Continued surveillance recommended. 2. No new or enlarging lymph nodes. There remains a stable left presacral lymph node measuring up to 8 mm in short axis. [facility], , 02/18/2024 12:49 PM
== END | disposition home or self-care (01) ==
LOC: RADMRIMAIN 12:00
PROVIDERS: ATTEND Internal Medicine
DX: C4A.61 Merkel cell carcinoma of right upper limb, including shoulder (principal); C20 Malignant neoplasm of rectum; Z71.3 Dietary counseling and surveillance; I82.91 Chronic embolism and thrombosis of unspecified vein
CPT/HCPCS: 72197; A9585

== ENCOUNTER → 2024-01-08 | Outpatient (CLI) | payer MEDICARE ==
--- NOTE | 2024-03-03 13:14 | CT ---
EXAMINATION TYPE: CT chest w con CT DLP: 674 mGycm, Automated exposure control for dose reduction was used. DATE OF EXAM: 01/21/2024 5:03 PM COMPARISON: CT chest abdomen and pelvis 08/13/2023, CTA chest 07/01/2018 CLINICAL INDICATION: Female, 83 year old with history of colon cancer; surveillance for metastasis. TECHNIQUE: Multiple axial images were obtained through the chest following the administration of 80 c c of Isovue 300. . Coronal and sagittal reformats reviewed. FINDINGS: LUNGS/ PLEURA: No pleural effusion or pneumothorax. Similar area of parenchymal change with air bronc hograms within the right upper lobe reflecting scarring and/or posttreatment changes. No new suspici ous pulmonary nodules or masses. AIRWAY: Patent and unremarkable.. HEART: Size within normal limits. No pericardial effusion. Aortic valvular and mitral annulus calcifi cations. Moderate coronary arterial calcifications. MEDIASTINUM: No evidence of adenopathy. VASCULATURE: No aortic aneurysm. MUSCULOSKELETAL: No acute osseous abnormalities. Similar marked irregularity of the glenoid bilateral ly with large irregular-appearing effusions and peripheral calcification. Advanced degenerative sandoval es of the bilateral AC joints. Multilevel degenerative disc disease. SOFT TISSUES/LYMPH NODES: Unremarkable. LOWER NECK: Macrocalcification within the right thyroid lobe. UPPER ABDOMEN: Small hiatal hernia. Layering gallstones. IMPRESSION: 1. Similar parenchymal abnormality within the right upper lobe which likely represent posttreatment c hange and/or scarring. No new suspicious pulmonary nodules, masses, or opacities. 2. Similar marked abnormality of the glenoid bilaterally with large effusions and significant degener ative changes and joint calcifications. 3. Small hiatal hernia. 4. Cholelithiasis.
== END | disposition home or self-care (01) ==
LOC: RADCTMAIN 12:55
PROVIDERS: ATTEND Internal Medicine
DX: C4A.61 Merkel cell carcinoma of right upper limb, including shoulder (principal); C20 Malignant neoplasm of rectum; I82.91 Chronic embolism and thrombosis of unspecified vein; Z71.3 Dietary counseling and surveillance; K44.9 Diaphragmatic hernia without obstruction or gangrene; K80.20 Calculus of gallbladder without cholecystitis without obstruction
CPT/HCPCS: 82565; 84520; 71260; 36415; Q9967

== ENCOUNTER → 2024-01-10 | Outpatient (CLI) | payer MEDICARE ==
--- NOTE | 2024-01-30 14:02 | MR ---
Site ID 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 COMPARISON: CT chest abdomen and pelvis 08/13/2023, MR rectal 09/18/2023, MR pelvis 06/05/2022, CT chest 01/08/2024 TECHNIQUE: Multiplanar multi-sequence imaging was performed without and with IV contrast. The patien t was given 7.5 ccs of Gadavist intravenously and dynamic imaging was performed. Post IV contrast sub traction images were also submitted for review. FINDINGS: Motion degraded examination. LOWER CHEST: Mild cardiomegaly. ABDOMEN Liver: Unremarkable. Gallbladder and Bile ducts: Cholelithiasis without wall thickening or surrounding fluid to suggest ac kotlik cholecystitis. No biliary ductal dilatation.. Pancreas: No pancreatic ductal dilatation medial pancreatic head 6 mm T2 hyperintense focus without d efinitive marrow nodularity or enhancement (Series 601, which 33). No obvious connection with the giordano creatic duct. Spleen: Unremarkable. Adrenal glands: Unremarkable. Kidneys: No hydronephrosis. There are 3 right inferior pole cortical T2 hyperintense nonenhancing cys ts with largest measuring up to 9 mm. Stomach and Bowel: Small to moderate sized hernia. No focal bowel thickening identified. Peritoneum: No evidence of pneumoperitoneum, free fluid, or adenopathy. Vasculature: Unremarkable. No aortic aneurysm. Abdominal wall: Small fat filled umbilical hernia. Musculoskeletal: Levoscoliotic curvature of the lumbar spine with apex at L3. Multilevel degenerative disease with postsurgical changes of laminectomy at L3-L5. Suggested at least moderate central canal stenosis at L3-L4. IMPRESSION: 1. No MR evidence for abdominal metastasis. 2. Small 6 mm pancreatic head T2 nonenhancing cystic lesion. 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 Follow-up M R abdomen in 1 year is recommended to assess for stability. 3. Cholelithiasis. 4. Levoscoliotic curvature of the lumbar spine with postsurgical changes L3-L5. Suggested at least m oderate central canal stenosis at L3-L4. 5. Small to moderate size hiatal hernia.
== END | disposition home or self-care (01) ==
LOC: RADMRIMAIN 14:30
PROVIDERS: ATTEND Internal Medicine
DX: C4A.61 Merkel cell carcinoma of right upper limb, including shoulder (principal); I82.91 Chronic embolism and thrombosis of unspecified vein; Z71.3 Dietary counseling and surveillance; C20 Malignant neoplasm of rectum; K80.20 Calculus of gallbladder without cholecystitis without obstruction; M48.061 Spinal stenosis, lumbar region without neurogenic claudication; K44.9 Diaphragmatic hernia without obstruction or gangrene
CPT/HCPCS: 74183; A9585

== ENCOUNTER 2024-01-16 18:27 | Inpatient (IN) | payer MEDICARE ==
[2024-01-16] MEDS ORDERED: HYDROcodone/APAP 7.5-325MG 1 EACH TAB ONE (20:45)
[2024-01-16] MEDS ORDERED: tiZANidine 4 MG TAB ONE (20:48)
[2024-01-17] MEDS ORDERED: cefTRIAXone IN SWFI 1,000 MG/10 ML SYRINGE IVP ONE (01:28)
[2024-01-17] MEDS ORDERED: AZITHROMYCIN 500 MG VIAL IVPB ONE (01:28)
[2024-01-17] MEDS ORDERED: MORPHINE SULFATE 4 MG/ML SYRINGE ONE (04:07)
[2024-01-17] MEDS ORDERED: MAGNESIUM SULFATE-D5W PMX 200 ML IVPB ONE (04:12)
[2024-01-17] MEDS ORDERED: tiZANidine 4 MG TAB ONE (05:49)
[2024-01-17] MEDS ORDERED: POTASSIUM CHLORIDE ER 10 MEQ TAB.ER.PRT PO ONE (11:19)
[2024-01-17] MEDS ORDERED: FUROSEMIDE 20 MG TAB ONE (11:22)
[2024-01-17] MEDS ORDERED: lisinopriL 20 MG TAB ONE (12:40)
[2024-01-17] MEDS ORDERED: hydroCHLOROthiazide 25 MG TAB ONE (12:40)
[2024-01-17] MEDS ORDERED: LINAGLIPTIN 5 MG TABLET ONE (12:40)
[2024-01-17] MEDS ORDERED: AZITHROMYCIN 500 MG TAB ONE (12:45)
[2024-01-17] MEDS ORDERED: cefTRIAXone 1 GM VIAL ONE (12:46)
[2024-01-17] MEDS ORDERED: PREGABALIN 100 MG CAP ONE (17:40)
[2024-01-17] MEDS ORDERED: PREGABALIN 50 MG CAP ONE (17:40)
[2024-01-17] MEDS ORDERED: HYDROcodone/APAP 7.5-325MG 1 EACH TAB ONE ×3 (17:41→23:59)
[2024-01-17] MEDS ORDERED: SODIUM CHLORIDE 0.9% 250 ML BAG ONE (19:58)
[2024-01-17] MEDS ORDERED: SODIUM CHLORIDE 0.9% 1,000 ML BAG ONE (19:58)
[2024-01-17] MEDS ORDERED: PREGABALIN 75 MG CAP ONE ×2 (20:45→23:59)
[2024-01-17] MEDS ORDERED: ZOLPIDEM 5 MG TAB ONE (20:45)
[2024-01-17] MEDS ORDERED: SODIUM CHLORIDE 0.9% 50 ML BAG ONE (23:59)
[2024-01-17] MEDS ORDERED: ACETAMINOPHEN TAB 325 MG TAB ONE (23:59)
[2024-01-17] MEDS ORDERED: SODIUM CHLORIDE 0.9% 50 ML BAG IV ONE (23:59)
[2024-01-18] MEDS ORDERED: ACETAMINOPHEN TAB 325 MG TAB ONE (00:50)
[2024-01-18] MEDS ORDERED: ALPRAZolam 0.25 MG TAB ONE ×3 (00:50→18:16)
[2024-01-18] MEDS ORDERED: IBUPROFEN 400 MG TAB ONE (06:42)
[2024-01-18] MEDS ORDERED: hydroCHLOROthiazide 25 MG TAB ONE (08:50)
[2024-01-18] MEDS ORDERED: lisinopriL 20 MG TAB ONE (08:51)
[2024-01-18] MEDS ORDERED: POTASSIUM CHLORIDE ER 10 MEQ TAB.ER.PRT PO ONE (08:51)
[2024-01-18] MEDS ORDERED: AZITHROMYCIN 500 MG TAB ONE (08:51)
[2024-01-18] MEDS ORDERED: LINAGLIPTIN 5 MG TABLET ONE (08:51)
[2024-01-18] MEDS ORDERED: ZOLPIDEM 5 MG TAB ONE ×2 (08:54→21:13)
[2024-01-18] MEDS ORDERED: HYDROcodone/APAP 7.5-325MG 1 EACH TAB ONE ×3 (08:55→21:13)
[2024-01-18] MEDS ORDERED: PREGABALIN 50 MG CAP ONE ×2 (08:55→16:09)
[2024-01-18] MEDS ORDERED: cefTRIAXone IN SWFI 1,000 MG/10 ML SYRINGE IVP ONE (08:56)
[2024-01-18] MEDS ORDERED: PREGABALIN 75 MG CAP ONE (21:14)
[2024-01-18] MEDS ORDERED: bisacodyL 5 MG TABLET.DR PO ONE (21:14)
[2024-01-18] MEDS ORDERED: SODIUM CHLORIDE 0.9% 50 ML BAG ONE (23:59)
[2024-01-19] MEDS ORDERED: ALPRAZolam 0.25 MG TAB ONE ×2 (02:55→14:33)
[2024-01-19] MEDS ORDERED: HYDROcodone/APAP 7.5-325MG 1 EACH TAB ONE ×3 (06:32→22:50)
[2024-01-19] MEDS ORDERED: PREGABALIN 75 MG CAP ONE ×3 (06:33→22:50)
[2024-01-19] MEDS ORDERED: lisinopriL 20 MG TAB ONE (07:44)
[2024-01-19] MEDS ORDERED: POTASSIUM CHLORIDE ER 10 MEQ TAB.ER.PRT PO ONE (07:44)
[2024-01-19] MEDS ORDERED: FUROSEMIDE 20 MG TAB ONE (07:44)
[2024-01-19] MEDS ORDERED: LINAGLIPTIN 5 MG TABLET ONE (07:44)
[2024-01-19] MEDS ORDERED: ATORVASTATIN 10 MG TAB ONE (07:45)
[2024-01-19] MEDS ORDERED: hydroCHLOROthiazide 25 MG TAB ONE (07:45)
[2024-01-19] MEDS ORDERED: cefTRIAXone 1 GM VIAL ONE (07:45)
[2024-01-19] MEDS ORDERED: AZITHROMYCIN 500 MG TAB ONE (07:45)
[2024-01-19] MEDS ORDERED: ZOLPIDEM 5 MG TAB ONE (22:49)
[2024-01-19] MEDS ORDERED: SODIUM CHLORIDE 0.9% 50 ML BAG ONE (23:59)
[2024-01-20] MEDS ORDERED: ALPRAZolam 0.25 MG TAB ONE ×2 (04:52→12:11)
[2024-01-20] MEDS ORDERED: PREGABALIN 75 MG CAP ONE ×3 (06:31→23:19)
[2024-01-20] MEDS ORDERED: HYDROcodone/APAP 7.5-325MG 1 EACH TAB ONE ×3 (06:31→23:20)
[2024-01-20] MEDS ORDERED: POTASSIUM CHLORIDE ER 10 MEQ TAB.ER.PRT PO ONE (09:36)
[2024-01-20] MEDS ORDERED: lisinopriL 20 MG TAB ONE (09:36)
[2024-01-20] MEDS ORDERED: ATORVASTATIN 10 MG TAB ONE (09:36)
[2024-01-20] MEDS ORDERED: LINAGLIPTIN 5 MG TABLET ONE (09:37)
[2024-01-20] MEDS ORDERED: cefTRIAXone 1 GM VIAL ONE (09:37)
[2024-01-20] MEDS ORDERED: hydroCHLOROthiazide 25 MG TAB ONE (09:37)
[2024-01-20] MEDS ORDERED: FUROSEMIDE 20 MG TAB ONE (09:37)
[2024-01-20] MEDS ORDERED: ZOLPIDEM 5 MG TAB ONE (23:19)
[2024-01-20] MEDS ORDERED: SODIUM CHLORIDE 0.9% 50 ML BAG ONE (23:59)
[2024-01-21] MEDS ORDERED: PREGABALIN 75 MG CAP ONE ×3 (06:16→21:26)
[2024-01-21] MEDS ORDERED: HYDROcodone/APAP 7.5-325MG 1 EACH TAB ONE ×3 (06:17→21:26)
[2024-01-21] MEDS ORDERED: POTASSIUM CHLORIDE ER 10 MEQ TAB.ER.PRT PO ONE (09:18)
[2024-01-21] MEDS ORDERED: lisinopriL 20 MG TAB ONE (09:19)
[2024-01-21] MEDS ORDERED: ATORVASTATIN 10 MG TAB ONE (09:19)
[2024-01-21] MEDS ORDERED: FUROSEMIDE 20 MG TAB ONE (09:20)
[2024-01-21] MEDS ORDERED: LINAGLIPTIN 5 MG TABLET ONE (09:20)
[2024-01-21] MEDS ORDERED: cefTRIAXone 1 GM VIAL ONE (09:20)
[2024-01-21] MEDS ORDERED: hydroCHLOROthiazide 25 MG TAB ONE (09:20)
[2024-01-21] MEDS ORDERED: ALPRAZolam 0.25 MG TAB ONE (10:15)
[2024-01-21] MEDS ORDERED: ZOLPIDEM 5 MG TAB ONE (21:25)
[2024-01-21] MEDS ORDERED: methocarbamoL 500 MG TAB ONE (23:59)
[2024-01-21] MEDS ORDERED: SODIUM CHLORIDE 0.9% 50 ML BAG ONE (23:59)
[2024-01-22] MEDS ORDERED: PREGABALIN 75 MG CAP ONE ×3 (05:56→20:45)
[2024-01-22] MEDS ORDERED: HYDROcodone/APAP 7.5-325MG 1 EACH TAB ONE ×3 (05:57→20:45)
[2024-01-22] MEDS ORDERED: POTASSIUM CHLORIDE ER 10 MEQ TAB.ER.PRT PO ONE (07:46)
[2024-01-22] MEDS ORDERED: cefTRIAXone 1 GM VIAL ONE (07:47)
[2024-01-22] MEDS ORDERED: lisinopriL 20 MG TAB ONE (07:47)
[2024-01-22] MEDS ORDERED: ATORVASTATIN 10 MG TAB ONE (07:47)
[2024-01-22] MEDS ORDERED: LINAGLIPTIN 5 MG TABLET ONE (07:47)
[2024-01-22] MEDS ORDERED: hydroCHLOROthiazide 25 MG TAB ONE (07:47)
[2024-01-22] MEDS ORDERED: FUROSEMIDE 20 MG TAB ONE (07:47)
[2024-01-22] MEDS ORDERED: MELATONIN 3 MG TABLET ONE (20:44)
[2024-01-22] MEDS ORDERED: ACETAMINOPHEN TAB 325 MG TAB ONE (20:44)
[2024-01-22] MEDS ORDERED: ZOLPIDEM 5 MG TAB ONE (20:44)
[2024-01-22] MEDS ORDERED: SODIUM CHLORIDE 0.9% 50 ML BAG ONE (23:59)
[2024-01-22] MEDS ORDERED: methocarbamoL 500 MG TAB ONE (23:59)
[2024-01-23] MEDS ORDERED: ACETAMINOPHEN TAB 325 MG TAB ONE ×3 (04:22→20:57)
[2024-01-23] MEDS ORDERED: HYDROcodone/APAP 7.5-325MG 1 EACH TAB ONE ×3 (06:15→17:35)
[2024-01-23] MEDS ORDERED: PREGABALIN 75 MG CAP ONE ×3 (06:15→20:58)
[2024-01-23] MEDS ORDERED: POTASSIUM CHLORIDE ER 10 MEQ TAB.ER.PRT PO ONE (09:27)
[2024-01-23] MEDS ORDERED: ATORVASTATIN 10 MG TAB ONE (09:28)
[2024-01-23] MEDS ORDERED: lisinopriL 20 MG TAB ONE (09:28)
[2024-01-23] MEDS ORDERED: cefTRIAXone 1 GM VIAL ONE (09:29)
[2024-01-23] MEDS ORDERED: hydroCHLOROthiazide 25 MG TAB ONE (09:29)
[2024-01-23] MEDS ORDERED: FUROSEMIDE 20 MG TAB ONE (09:29)
[2024-01-23] MEDS ORDERED: ALPRAZolam 0.25 MG TAB ONE (13:16)
[2024-01-23] MEDS ORDERED: BUTALB/APAP/CAFF 50-325-40MG TAB PO ONE ×2 (13:28→22:18)
[2024-01-23] MEDS ORDERED: HYDROcodone/APAP 5-325MG 1 EACH TAB ONE (18:53)
[2024-01-23] MEDS ORDERED: ZOLPIDEM 5 MG TAB ONE (20:58)
[2024-01-23] MEDS ORDERED: SODIUM CHLORIDE 0.9% 50 ML BAG ONE (23:59)
[2024-01-23] MEDS ORDERED: methocarbamoL 500 MG TAB ONE (23:59)
[2024-01-24] MEDS ORDERED: HYDROcodone/APAP 7.5-325MG 1 EACH TAB ONE ×3 (01:50→14:21)
[2024-01-24] MEDS ORDERED: PREGABALIN 75 MG CAP ONE ×4 (06:20→14:27)
[2024-01-24] MEDS ORDERED: cefTRIAXone 1 GM VIAL ONE (08:37)
[2024-01-24] MEDS ORDERED: ATORVASTATIN 10 MG TAB ONE (08:38)
[2024-01-24] MEDS ORDERED: LINAGLIPTIN 5 MG TABLET ONE (08:38)
[2024-01-24] MEDS ORDERED: POTASSIUM CHLORIDE ER 10 MEQ TAB.ER.PRT PO ONE (08:38)
[2024-01-24] MEDS ORDERED: ALPRAZolam 0.5 MG TAB ONE (09:49)
[2024-01-24] MEDS ORDERED: CAPSAICIN 0.025% CREAM 60 GM TUBE TOPICAL ONE (13:00)
[2024-01-24] MEDS ORDERED: SODIUM CHLORIDE 0.9% 50 ML BAG ONE (13:00)
[2024-01-24] MEDS ORDERED: methocarbamoL 500 MG TAB ONE (13:00)
--- NOTE | 2024-02-13 14:06 | CT ---
EXAM: CT Abdomen and Pelvis With Intravenous Contrast CLINICAL HISTORY: Patient presents with weakness, rule out GI bleed TECHNIQUE: Axial computed tomography images of the abdomen and pelvis with intravenous contrast. CTDI is 32.6 mGy and DLP is 1502.6 mGy-cm. This CT exam was performed using one or more of the following dose reduction techniques: automated exposure control, adjustment of the mA and/or kV according to patient size, and/or use of iterative reconstruction technique. COMPARISON: No relevant prior studies available. FINDINGS: Lung bases:Unremarkable. No mass. No consolidation. Heart: Mild cardiomegaly with moderate coronary, aortic, and mitral calcification. Mediastinum: There is a hiatal hernia measuring 4.3 cm. ABDOMEN: Liver:Unremarkable. No mass. Gallbladder and bile ducts: There is a 1.2 cm layer of numerous 5 mm calcified gallstones within a nondilated gallbladder. No wall thickening or surrounding inflammation is seen. Pancreas:Unremarkable. No mass. No ductal dilation. Spleen:Unremarkable. No splenomegaly. Adrenals:Unremarkable. No mass. Kidneys and ureters:Delayed images show normal renal contrast excretion bilaterally. No hydronephrosis. Stomach and bowel:Bowel loops are nondilated. There is residual contrast within the colon which limits sensitivity for GI hemorrhage. No GI hemorrhage is identified. No mucosal thickening. No acute inflammatory changes are seen involving the bowel. PELVIS: Appendix:No findings to suggest acute appendicitis. Bladder:Unremarkable. No mass. Reproductive:Unremarkable as visualized. ABDOMEN and PELVIS: Intraperitoneal space:Unremarkable. No free air. No significant fluid collection. Bones/joints: There is severe degenerative changes throughout the lumbar spine including 38 scoliosis centered on L2-3. There are laminectomy changes. No acute fracture is seen. There appears to be mild spinal stenosis at that level with the canal measuring 8-9 mm just above the laminectomy. Mild to moderate degenerative changes in both hips. No acute fracture or dislocation. Soft tissues:Unremarkable. Vasculature: The abdominal aorta is mildly calcified but nondilated. Lymph nodes:Unremarkable. No enlarged lymph nodes. IMPRESSION: 1. No acute inflammatory changes are seen involving the bowel. 2. Bowel loops are nondilated. There is residual contrast within the colon which limits sensitivityfor GI hemorrhage. No GI hemorrhage is identified. 3. There is a 1.2 cm layer of numerous 5 mm calcified gallstones within a nondilated gallbladder. No wall thickening or surrounding inflammation is seen. 4. There is a hiatal hernia measuring 4.3 cm. 5. Mild cardiomegaly with moderate coronary, aortic, and mitral calcification. 6. There is severe degenerative changes throughout the lumbar spine including 38scoliosis centered on L2-3. There are laminectomy changes. No acute fracture is seen. There appears to be mild spinal stenosis at that level with the canal measuring 8-9 mm just above the laminectomy. Radiologist: Luisito Andres MD Electronically Signed: 01/17/24 02:56 Study ready at 00:51 and initial results transmitted at 02:56 Results also transmitted to Film Room, Film Room @ [phone] (Fax) MTDD
--- NOTE | 2024-02-27 14:42 | PN ---
PROGRESS NOTE DATE OF SERVICE: 01/19/2024 LOCATION: 369. REASON FOR FOLLOWUP: UTI and pneumonia. INTERVAL HISTORY: The patient is afebrile. She is currently breathing comfortably. Denies having any chest pain or shortness of breath. Occasional cough. No abdominal pain. Has been complaining of mostly pain to the lower back area, some radiation to the leg, but no weakness in the legs. EXAMINATION: VITAL SIGNS: Her blood pressure is 107/70 with a pulse of 73, temperature of 98.2. GENERAL DESCRIPTION: This is an elderly female, lying in bed, in no distress. RESPIRATORY SYSTEM: Unlabored breathing. Decreased breath sounds. No wheeze. HEART: S1 and S2. Regular rate and rhythm. ABDOMEN: Soft. No tenderness. EXTREMITIES: No edema in the feet. LABORATORY DATA: Creatinine 0.64, white count 4.5, cultures are currently pending. DIAGNOSTIC IMPRESSION AND PLAN: 1. The patient is currently being followed for right upper lobe pneumonia and UTI. Currently waiting for the culture to be finalized. The patient is afebrile. White count is normal. Continue Rocephin and Zithromax. 2. Intractable lower back pain with significant abnormality of the spine on the CT. Orthopedic has been consulted, and we will follow recommendation. MMODL / IJN: [id number] /
--- NOTE | 2024-02-27 15:37 | PN ---
PROGRESS NOTE LOCATION: 466. REASON FOR FOLLOWUP: Pneumonia, UTI. INTERVAL HISTORY: The patient is afebrile. The patient has been breathing comfortably. No chest pain, shortness of breath, or cough. No abdominal pain or diarrhea. Has been complaining of pain mostly to the neck and upper body area. PHYSICAL EXAMINATION: VITAL SIGNS: Blood pressure 99/64, pulse 102, temperature 98.4, she is 95% on room air. GENERAL DESCRIPTION: This is an elderly female, lying in bed, in no distress. RESPIRATORY SYSTEM: Unlabored breathing. Clear to auscultation anteriorly. HEART: S1, S2. Regular rate. ABDOMEN: Soft. No tenderness. LABORATORY DATA: White count 8.1. Urine cultures have been negative. DIAGNOSTIC IMPRESSION AND PLAN: The patient is admitted to the hospital with multiple symptoms. She did have abnormal x-ray with right upper lobe infiltrate concerning for pneumonia and a positive urinalysis. The patient has received adequate antibiotic therapy. Rocephin can be safely discontinued. Discussed with the admitting physician. Continue with pain management per the Pain Management Services. Questions and concerns were answered. MMODL / IJN: [id number] /
--- NOTE | 2024-02-27 15:37 | PN ---
PROGRESS NOTE DATE OF SERVICE: 01/22/2024 LOCATION: 466. INTERVAL HISTORY: The patient is afebrile. The patient is breathing comfortably. Lower back pain has slightly improved. The patient denies having any chest pain, shortness of breath, or cough. No nausea, vomiting, or diarrhea. PHYSICAL EXAMINATION: VITAL SIGNS: Her blood pressure 98/62 with a pulse of 95, temperature of 98, . GENERAL DESCRIPTION: This is an elderly female, lying in bed, in no distress. RESPIRATORY SYSTEM: Unlabored breathing, clear to auscultation anteriorly. HEART: S1, S2, regular rate and rhythm, soft, no tenderness. ABDOMEN: Soft, no tenderness. EXTREMITIES: No feet edema. LABS: White count was 8.2, creatinine 0.78. IMPRESSION/PLAN: The patient admitted to hospital, mostly intractable low back pain, also having right upper lobe infiltrate on chest x-ray, positive concerning for UTI. Culture has been negative so far. She is on Rocephin continue, Zithromax has been discontinued, and we will monitor clinical course closely. MMODL / IJN: [id number] /
--- NOTE | 2024-02-27 15:37 | CONS ---
CONSULTATION Current location is ER16, waiting for a room upstairs. REASON FOR CONSULTATION: UTI and pneumonia. HISTORY OF PRESENT ILLNESS: The patient is an 83-year-old female with multiple comorbidities including diabetes, hypertension, hyperlipidemia, history of melanoma, who presented to the hospital with generalized weakness. Symptom has been going on for a day or 2. The patient mentioned she felt so weak yesterday, she was about to fell down, but she was able to get to the chair and prevented the fall. The patient denies having any high- grade fever or chills. The patient denies having any headache or URI symptoms. No chest pain, shortness of breath. She did have a mild cough for a few days, but not bringing up any sputum. Denies any nausea, vomiting. No abdominal pain. Has been complaining of urinary burning, frequency, but no abdominal pain, diarrhea, constipation. With these symptoms, the patient has been evaluated. Workup showed UTI and pneumonia. She was started on Rocephin and Zithromax. Infectious Disease was consulted for further management of antibiotic therapy. REVIEW OF SYSTEMS: Positive point has been mentioned in HPI. Rest of the systems negative. PAST MEDICAL HISTORY: Mentioned above. PAST SURGICAL HISTORY: Reviewed. ALLERGIES: No known drug allergies. PAST FAMILY AND SOCIAL HISTORY: Reviewed, no change. MEDICATIONS: Currently include, 1. The patient is on Rocephin 1 gram daily. 2. She is on Zithromax. 3. The patient is also on Lyrica. 4. Lasix. 5. Vasotec. 6. [place]. 7. Januvia. 8. Crestor. 9. FiberCon. PHYSICAL EXAMINATION: VITAL SIGNS: Blood pressure is 120/64, pulse of 59, temperature . GENERAL DESCRIPTION: This is an elderly female lying in bed, in no distress. No tachypnea or accessory muscles of respiration use. HEENT: Shows slight pallor. No scleral icterus. Oral mucous membrane is moist. No pharyngeal erythema or thrush. NECK: Trachea central. No thyromegaly. LUNGS: Unlabored breathing. Decreased breath sounds in the bases. No wheeze. HEART: S1, S2. Regular rate and rhythm. ABDOMEN: Soft, no tenderness. No guarding or rigidity. EXTREMITIES: No edema. Feet examination, no rashes or masses palpable. NEUROLOGIC: The patient is awake, alert, oriented x3. Mood and affect normal. SKIN: Multiple bruises. No rash or masses palpable. LABORATORY DATA: Creatinine 0.67. Electrolytes have been normal. Troponin has been negative. Lactate was 1.4. The patient did have hemoglobin of 9.7, white count 2.79. Urine shows trace leukocyte esterase and 9 wbc with cultures currently pending. The patient tested negative for influenza, RSV and COVID. The patient did have a CT of abdominal pelvis. No acute inflammatory changes seen involving the bowel. Calcified gallstone within the nondistended gallbladder. Mild cardiomegaly with moderate aortic calcification, degenerative changes throughout the lumbar spine. DIAGNOSTIC IMPRESSION AND PLAN: 1. Patient presented to the hospital with generalized weakness, who almost fell out, did have urinary symptom mildly positive for possible symptomatic urinary tract infection. Did have mild cough, underlying pneumonia less likely but not entirely excluded. 2. We will try to obtain sputum for Gram stain and culture. We will wait for urine culture to be finalized. 3. We will put the patient on Rocephin 1 gram daily while awaiting for the culture to finalize. Thank you for this consultation. We will follow this patient along with you. Adjust the medications further on the basis of culture. MMODL / IJN: [id number] /
--- NOTE | 2024-02-27 15:37 | PN ---
PROGRESS NOTE DATE OF SERVICE: 01/22/2024 LOCATION: 466. REASON FOR FOLLOWUP: Pneumonia, UTI. INTERVAL HISTORY: The patient is afebrile, has been complaining of pain to the neck area. No chest pain, shortness of breath, or cough. No abdominal pain or diarrhea. PHYSICAL EXAMINATION: VITAL SIGNS: Blood pressure 94/63, pulse of 94, temperature of 98.8. She is 96% on room air. GENERAL DESCRIPTION: This is an elderly female, lying in bed, in no distress. RESPIRATORY SYSTEM: Unlabored breathing. Clear to auscultation anteriorly. HEART: S1, S2. Regular rate. ABDOMEN: Soft, no tenderness. DIAGNOSTIC IMPRESSION AND PLAN: The patient is admitted to the hospital mostly with low back pain. She did have abnormal chest x-ray with right upper lobe infiltrate suggesting pneumonia and UTI that has been adequate. The patient has received adequate antibiotic. No need for antibiotic on discharge. Daughter at the bedside. Questions were answered. MMODL / IJN: [id number] /
--- NOTE | 2024-02-27 15:37 | PN ---
PROGRESS NOTE REASON FOR FOLLOWUP: UTI and pneumonia. INTERVAL HISTORY: The patient is breathing comfortably on room air. Denies any chest pain, shortness of breath, or cough. No nausea, vomiting. No abdominal pain. No diarrhea. PHYSICAL EXAMINATION: VITAL SIGNS: Blood pressure 91/60 with a pulse of 77, temperature is 98.2. She is 95% on room air. GENERAL DESCRIPTION: This is an elderly female, lying in bed, in no distress. RESPIRATORY SYSTEM: Unlabored breathing. Clear to auscultation anteriorly. HEART: S1, S2. Regular rate and rhythm. EXTREMITIES: No edema of the feet. LABORATORY DATA: Creatinine 0.64. White count is normal. Chest x-ray was right upper lobe infiltrate suspicious for pneumonia. Cultures are pending. DIAGNOSTIC IMPRESSION AND PLAN: The patient was admitted to the hospital with weakness, multifactorial with concern for pneumonia on the chest x-ray and did have positivity concerning for urinary tract infection. The patient is currently covered with Rocephin to continue while waiting for the culture to finalize and monitor clinical course closely. MMODL / IJN: [id number] /
--- NOTE | 2024-02-27 15:43 | PN ---
PROGRESS NOTE DATE OF SERVICE: 01/21/2024 LOCATION: 466. REASON FOR FOLLOWUP: Urinary tract infection, question of pneumonia. INTERVAL HISTORY: The patient is afebrile, has been complaining of mostly pain to the back with some improvement with the pain medication. Denies any chest pain or shortness of breath. No significant cough. No abdominal pain. No diarrhea. PHYSICAL EXAMINATION: VITAL SIGNS: Blood pressure 118/75 with a pulse of 96, temperature 98.4. GENERAL DESCRIPTION: This is an elderly female, lying in bed, in no distress. RESPIRATORY SYSTEM: Unlabored breathing. Clear to auscultation anteriorly. HEART: S1, S2. Regular rate and rhythm. ABDOMEN: Soft. No tenderness. LABORATORY DATA: Creatinine 0.78. White count 8.2. Wound cultures are pending. DIAGNOSTIC IMPRESSION AND PLAN: Patient is in the hospital with multiple symptoms including weakness and back pain with evidence of significant degenerative changes, despite being followed by Orthopedics and pain specialist. Chest x-ray with right upper lobe infiltrate and positive concerning for pneumonia, and UTI. Patient is covered with Rocephin and Zithromax. Try to obtain culture and monitor clinical course closely. MMODL / IJN: [id number] /
--- NOTE | 2024-03-04 15:24 | XR ---
EXAMINATION TYPE: XR chest 2V DATE OF EXAM: 01/16/2024 COMPARISON: No comparison available on downtime PACS. INDICATION: Weakness TECHNIQUE: Frontal and lateral views of the chest are obtained. FINDINGS: The heart size is enlarged. The pulmonary vasculature is upper limits of normal. There is a right upper lobe infiltrate. Correlate for pneumonia. Follow-up is recommended. IMPRESSION: 1. Right upper lobe infiltrate likely pneumonia. Follow-up to clearing is recommended. 2. Cardiomegaly.
== END 2024-01-24 16:02 | DRG 689 ==
LOC: EC 18:27 → DISRECOVER 01-17 01:10 → UNDODISIN 01-24 16:02
PROVIDERS: ADMIT Internal Medicine; ATTEND Internal Medicine
DX: N39.0 Urinary tract infection, site not specified (principal); J15.9 Unspecified bacterial pneumonia; I10 Essential (primary) hypertension; E78.00 Pure hypercholesterolemia, unspecified; M51.16 Intervertebral disc disorders with radiculopathy, lumbar region; E11.9 Type 2 diabetes mellitus without complications; Z79.84 Long term (current) use of oral hypoglycemic drugs; M48.061 Spinal stenosis, lumbar region without neurogenic claudication; M41.9 Scoliosis, unspecified; R53.1 Weakness; G89.29 Other chronic pain; M54.50 Low back pain, unspecified; Z85.820 Personal history of malignant melanoma of skin
CPT/HCPCS: 51702; 71046; 74177; 86850; 86900; 86901; 87040; 87086; 93005; 96361; 96365; 96366; 96367; 96375; 99285

== ENCOUNTER 2024-03-03 17:00 | Emergency (ER) | payer MEDICARE ==
[2024-03-03 17:08] VITALS: RESP 18; TEMP 98.2
--- NOTE | 2024-03-03 17:18 | ED ---
General Adult HPI - General Chief complaint: Fall Stated complaint: fall Time Seen by Provider: 03/03/24 17:03 Source: patient, EMS, RN notes reviewed Mode of arrival: EMS Limitations: no limitations - History of Present Illness Initial comments: Patient is an 83-year-old female presenting to the emergency department from a fall. Patient does present from assisted living. Patient was using the restroom and leaned forward and fell. Patient did strike her head. Patient denies any syncope. No loss of consciousness. No neck or back pain. No chest pain or dyspnea. No abdominal pain. Patient did sustain skin tears to her right hand and right knee as well as right forehead lac - Related Data Home Medications Medication Instructions Recorded Confirmed Enalapril/Hydrochlorothiazide 1 tab PO DAILY 02/03/18 06/14/23 [Enalapril/Hydrochlorothiazide 10-25 mg Tablet] Potassium Chloride ER [K-Dur 10] 10 meq PO DAILY 07/01/18 06/14/23 Apixaban [Eliquis] 5 mg PO DAILY 06/14/23 06/14/23 Furosemide [Lasix] 10 mg PO DAILY 06/14/23 06/14/23 Januvia 1 tab PO DAILY 06/14/23 06/14/23 Pregabalin [Lyrica] 150 mg PO TID 06/14/23 06/14/23 Previous Rx's Medication Instructions Recorded HYDROcodone/APAP 7.5-325MG [E[place]on 1 tab PO TID PRN #9 tab 07/03/18 7.5-325] Zolpidem Tartrate [Ambien] 5 mg PO HS #3 tablet 07/03/18 HYDROcodone/APAP 10-325MG [[place] 1 tab PO Q8HR PRN 3 Days #9 tab 10/21/23 10-325] Ibuprofen 400 mg PO TID PRN #12 tablet 10/21/23 Allergies Allergy/AdvReac Type Severity Reaction Status Date / Time No Known Allergies Allergy Verified 10/21/23 11:06 Review of Systems ROS Statement: Those systems with pertinent positive or pertinent negative responses have been documented in the HPI. ROS Other: All systems not noted in ROS Statement are negative. Constitutional: Denies: fever Eyes: Denies: eye pain ENT: Denies: ear pain Respiratory: Denies: cough, dyspnea Cardiovascular: Denies: chest pain Endocrine: Denies: fatigue Gastrointestinal: Denies: abdominal pain Neurological: Denies: headache, weakness, confusion Past Medical History Past Medical History: Cancer, Heart Failure, Diabetes Mellitus, Hypertension Additional Past Medical History / Comment(s): sciatic nerve pain, with rt leg weakness insomnia, RLS, melanoma rt upper arm History of Any Multi-Drug Resistant Organisms: None Reported Past Surgical History: Orthopedic Surgery Additional Past Surgical History / Comment(s): knees, achilles tendon repair Past Anesthesia/Blood Transfusion Reactions: No Reported Reaction Past Psychological History: No Psychological Hx Reported Smoking Status: Never smoker - Past Family History Father Family Medical History: Diabetes Mellitus Additional Family Medical History / Comment(s): Mother History Unknown: Yes Additional Family Medical History / Comment(s): pancreatic tumor (patient does not believe it was cancerous) General Exam Limitations: no limitations General appearance: alert Head exam: Present: other (Right eyebrow laceration) Eye exam: Present: normal appearance, PERRL, EOMI ENT exam: Present: normal oropharynx Neck exam: Present: normal inspection. Absent: tenderness Respiratory exam: Present: normal lung sounds bilaterally Cardiovascular Exam: Present: regular rate, normal rhythm GI/Abdominal exam: Present: soft. Absent: tenderness Extremities exam: Present: normal inspection, full ROM. Absent: tenderness Neurological exam: Present: alert, oriented X3, CN II-XII intact. Absent: motor sensory deficit Psychiatric exam: Present: normal affect, normal mood Skin exam: Present: other (Skin tears right hand and right knee. Laceration right eyebrow) Course Vital Signs 03/03/24 17:01 Temperature 98.2 F Pulse Rate 67 Respiratory 18 Rate Blood Pressure 131/94 O2 Sat by Pulse 98 Oximetry EKG Findings - EKG Results: EKG: interpreted by ERMD, sinus rhythm (Significant artifact is present. Poor R wave progression. Left axis. Inferior Q waves.), normal ST/T Procedures - Laceration Laceration #1 Consent Obtained: verbal consent Indication: laceration Site: face Size (cm): 3 Description: irregular Depth: simple, single layer Pre-repair: irrigated extensively Size of Sutures: other (Closed using Exofin tissue adhesive) Medical Decision Making - Medical Decision Making Was pt. sent in by a medical professional or institution (, PA, MED SURG RN, urgent care, hospital, or usp...) When possible be specific @ -No Did you speak to anyone other than the patient for history (EMS, parent, family, police, friend...)? What history was obtained from this source @ -No Did you review nursing and triage notes (agree or disagree)? Why? @ -I reviewed and agree with nursing and triage notes Were old charts reviewed (outside hosp., previous admission, EMS record, old EKG, old radiological studies, urgent care reports/EKG's, usp records)? Report findings @ -No old charts were reviewed Differential Diagnosis (chest pain, altered mental status, abdominal pain women, abdominal pain men, vaginal bleeding, weakness, fever, dyspnea, syncope, headache, dizziness, GI bleed, back pain, seizure, CVA, palpatations, mental health, musculoskeletal)? @ -Differential Musculoskeletal Muscular strain, contusion, ligament sprain, fracture, arthritis, septic arthritis, bursitis, cellulitis, muscle spasm, nerve compression, DVT, arterial occlusion, herpes zoster, electrolyte abnormality, tumor.... This is not meant to be in all inclusive list EKG interpreted by me (3pts min.). @ -As above X-rays interpreted by me (1pt min.). @ -None done CT interpreted by me (1pt min.). @ -CT scan brain and cervical spine shows degenerative changes U/S interpreted by me (1pt. min.). @ -None done What testing was considered but not performed or refused? (CT, X-rays, U/S, labs)? Why? @ -None What meds were considered but not given or refused? Why? @ -None Did you discuss the management of the patient with other professionals (professionals i.e. , PA, MED SURG RN, lab, RT, psych nurse, psychosocial rehabilitation counselor, information consultant, teacher, emergency response officer, pillowcase folder)? Give summary @ -No Was smoking cessation discussed for >3mins.? @ -No Was critical care preformed (if so, how long)? @ -No Were there social determinants of health that impacted care today? How? (Homelessness, low income, unemployed, alcoholism, drug addiction, transportation, low edu. Level, literacy, decrease access to med. care, [place] [facility], rehab)? @ -No Was there de-escalation of care discussed even if they declined (Discuss DNR or withdrawal of care, Hospice)? DNR status @ -No What co-morbidities impacted this encounter? (DM, HTN, Smoking, COPD, CAD, Cancer, CVA, ARF, Chemo, Hep., AIDS, mental health diagnosis, sleep apnea, morbid obesity)? @ -None Was patient admitted / discharged? Hospital course, mention meds given and route, prescriptions, significant lab abnormalities, going to OR and other pertinent info. @ -Patient presents with a fall. No loss of consciousness. Images unremarkable. Patient will be discharged with follow-up Undiagnosed new problem with uncertain prognosis? @ -No Drug Therapy requiring intensive monitoring for toxicity (Heparin, Nitro, Insulin, Cardizem)? @ -No Were any procedures done? @ -See above, laceration repair Diagnosis/symptom? @ -Fall, eyebrow laceration Acute, or Chronic, or Acute on Chronic? @ -, Acute Uncomplicated (without systemic symptoms) or Complicated (systemic symptoms)? @ -Default Side effects of treatment? @ -No Exacerbation, Progression, or Severe Exacerbation? @ -No Poses a threat to life or bodily function? How? (Chest pain, [place], [place], pneumonia, PE, COPD, DKA, ARF, appy, cholecystitis, CVA, Diverticulitis, Homicidal, Suicidal, threat to staff... and all critical care pts) @ -No Disposition Clinical Impression: Fall Disposition: HOME SELF-CARE Condition: Stable Instructions (If sedation given, give patient instructions): Head Injury (ED), Skin Adhesive Care (ED) Additional Instructions: Please do follow-up with primary care physician in the next day or 2 for recheck. Please hold any blood thinners for the next 24 to 48 hours. Return for confusion, weakness, worsening or changing symptoms or any other concerns. Is patient prescribed a controlled substance at d/c from ED?: No Referrals: Tj Dubon DO [Primary Care Provider] - 1-2 days Time of Disposition: 19:20
[2024-03-03] MEDS: ACETAMINOPHEN IV (For NPO) 1,000 MG in EMPTY BAG 1 BAG IVPB STA (18:23)
--- NOTE | 2024-03-03 18:23 | CT ---
EXAMINATION TYPE: CT brain micky monae DATE OF EXAM: 03/03/2024 COMPARISON: 07/01/2018 HISTORY: fall CT DLP: 1468.1 mGycm, Automated exposure control for dose reduction was used. CONTRAST: Patient injected with 0 mL of Isovue 300. CT of the brain is performed utilizing 3 mm thick sections through the posterior fossa and 3 mm thick sections through the remaining calvarium. Study is performed within 24 hours of arrival to the hospital. No abnormal hyperdensity is present to suggest an acute intracranial hemorrhage. No mass lesion is evident. No acute infarcts are evident. Ventricles and sulci are prominence for the patient age. Paranasal sinuses and mastoid air cells within the [id number] are clear. IMPRESSIONS: 1. No acute intracranial process. Follow-up MRI can be performed as clinically indicated. 2. Mild atrophy, stable CT cervical spine. COMPARISON: None CT of the cervical spine is performed in the axial plane at 2 mm thick sections. Reconstructed image s in the coronal, and sagittal plane are reviewed on the computer. No acute fractures are evident. Vertebral body alignment is straightened There is diffuse loss of disc height throughout the cervical spine. Anterior and posterior vertebral body spurring is present, most notably C5-6 C6-7. Additional anterior body spurring is present C4 C7. There is loss of disc height at T1 to Vertebral body heights are preserved. C3-4: Endplate spurring in the right paracentral region has moderate anterior thecal sac compression. Moderate left and severe right foraminal stenosis is present C3-4. C4-5: Endplate spurring is present C4-5 without spinal canal stenosis. Moderate bilateral foraminal n arrowing is present. C5-6: Endplate spurring and uncovertebral joint hypertrophy has mild anterior thecal sac compression and moderate to severe bilateral foraminal stenosis. C6-7: Endplate spurring is mild anterior thecal sac compression. Mild to moderate foraminal narrowing is present. IMPRESSION: 1. Degenerative changes through the cervical spine including Anterior and posterior vertebral body sp urring, diffuse loss of disc height throughout the cervical spine and uncovertebral joint hypertrophy discussed above. [facility], Workstation: [facility], 03/03/2024 6:20 PM
[2024-03-03] MEDS: DIPH,PERTUS(ACELL)TETVAC-LF 0.5 ML VIAL IM ONE (18:26)
[2024-03-03] MEDS: TOPICAL SKIN ADHESIVE 1 EACH AMP TOPICAL ONE (19:19)
[2024-03-03 19:26] VITALS: BP 127/84; PULSE 78
== END 2024-03-03 19:50 | disposition home or self-care (01) ==
LOC: EC 17:00
DX: S01.111A Laceration without foreign body of right eyelid and periocular area, initial encounter (principal); Z23 Encounter for immunization; W01.0XXA Fall on same level from slipping, tripping and stumbling without subsequent striking against object, initial encounter
CPT/HCPCS: 93005; 72125; 70450; 90715; 99284; 90471; 96365; 12013; J0131

== ENCOUNTER → 2024-11-09 | Outpatient (CLI) | payer MEDICARE ==
[2024-11-09 12:27] LABS: African American GFR (CKD) 76 (>60 ml/min/1.73 sqM); Blood Urea Nitrogen 21 mg/dL (7-17); Non-African American GFR(CKD) 66 (>60 ml/min/1.73 sqM)
--- NOTE | 2024-11-09 14:28 | CT ---
EXAMINATION TYPE: CT ChestAbdPelvis w con DATE OF EXAM: 11/09/2024 2:14 PM COMPARISON: 01/17/2024. CLINICAL INDICATION: Female, 84 years old with history of C20 MALIGNANT NEOPLASM OF RECTUM; PHH, Armida gnant neoplasm of rectum Technique: CT ChestAbdPelvis w con; Multiple axial images were obtained. Two-dimensional coronal and sagittal reconstructions were obtained. Contrast used:100 mL of Isovue 300 with IV Contrast, (None if empty) Oral contrast used: with Oral Contrast CT DLP: 1579 mGycm, Automated exposure control for dose reduction was used. Findings: CHEST: LUNGS/ PLEURA: No focal consolidation, pneumothorax or pleural effusion. Consolidation/atelectasis ch anges in the right apex. AIRWAY: Patent and unremarkable. HEART: Size within normal limits. Mild to moderate coronary artery calcifications present. Thickenin g and calcification of aortic valve present which are moderate to severe mitral valve annular calcifi cations.. MEDIASTINUM: No gross evidence of adenopathy. Moderate hiatal hernia is present. VASCULATURE: No aortic aneurysm. MUSCULOSKELETAL: No acute osseous abnormalities. Severe degeneration changes of the shoulders with co mplete erosion of the joints themselves with deformity. SOFT TISSUES/LYMPH NODES: Unremarkable. LOWER NECK: No significant findings. ABDOMEN: ABDOMEN LIVER: Unremarkable GALLBLADDER AND BILE DUCTS: Unremarkable. PANCREAS: Unremarkable. SPLEEN: Unremarkable. ADRENAL GLANDS: Unremarkable. KIDNEYS AND URETERS: No evidence of hydronephrosis or obstructing renal calculus. The ureters are unr emarkable. PELVIS BLADDER: Unremarkable REPRODUCTIVE: Unremarkable. ABDOMEN & PELVIS STOMACH AND BOWEL: Circumferential wall thickening of the rectum extending probably 6.4 cm. No eviden ce of bowel obstruction. PERITONEUM/RETROPERITONEUM: No evidence of pneumoperitoneum or free fluid. VASCULATURE: No evidence of aortic aneurysm. MUSCULOSKELETAL: No acute osseous abnormalities. Severe disc degeneration changes are present through out the thoracolumbar spine. Severe degeneration changes of the hips demonstrates transitioning scler osis and subchondral cystic change. Levoscoliosis apex L3 L5 LYMPH NODES: No gross evidence for lymphadenopathy. SOFT TISSUE/ABDOMINAL WALL: Unremarkable IMPRESSION: 1. Circumferential wall thickening of the rectum extending up to 6.4 cm. Evaluation limited due to p atient body habitus. No evidence for metastatic disease definitively visualized. No lymphadenopathy. 2. Moderate to severe aortic valve calcifications. 3. Mild to moderate coronary artery calcifications. 4. Cholelithiasis. 5. Hepatic steatosis. 6. Severe end-stage degeneration with deformity to the shoulder joints. 7. Moderate hiatal hernia. 8. Severe deformity to the lumbar spine with leftward shift of the superior spine centering at L3 an d rightward shift of the spine at L4 and L5. [facility], , 11/09/2024 2:26 PM
== END | disposition home or self-care (01) ==
LOC: RADCTMAIN 11:33
PROVIDERS: ATTEND Internal Medicine
DX: C20 Malignant neoplasm of rectum (principal); I82.91 Chronic embolism and thrombosis of unspecified vein; C4A.61 Merkel cell carcinoma of right upper limb, including shoulder; I25.10 Atherosclerotic heart disease of native coronary artery without angina pectoris; K44.9 Diaphragmatic hernia without obstruction or gangrene; K76.0 Fatty (change of) liver, not elsewhere classified; K80.20 Calculus of gallbladder without cholecystitis without obstruction; K62.89 Other specified diseases of anus and rectum; M43.8X6 Other specified deforming dorsopathies, lumbar region; Z71.3 Dietary counseling and surveillance
CPT/HCPCS: 82565; 84520; 71260; 74177; 36415; Q9967